=== PATIENT | female | born 1985 | race Caucasian/White ===

== ENCOUNTER 2017-02-27 15:59 | Emergency (ER) | payer OTHER ==
--- NOTE | 2017-02-27 16:57 | ERPHSYRPT ---
- History of Present Illness Time Seen by Provider: 02/27/17 16:45 Source: patient Exam Limitations: clinical condition Patient Subjective Stated Complaint: pt co pain to both legs, and sob since yesterday, pt states she has bilat. dvt's in dec and is afraid someithing is wrong, she states she fell yestereday. Triage Nursing Assessment: pt walked in, resp labored with excertion, skin w/d. pink pt states she has swelling to legs, no swelling noted, pt co being anxious Physician History: PATIENT WITH HISTORY OF BILATERAL DVT STATES SHE FELL ONTO HER BUTTOCK AND SUSTAINED INJURY TO BOTH CALFS AND LEFT KNEE. LANDING ONTO HER BUTTOCK. HAS ONSET OF SHORTNESS OF BREATH AFTER HER FALL, STATES HER ELIQUIS RAN OUT FOR 2-3 DAYS A COUPLE OF DAYS AGO. DENIES ASSOCIATED HEAD NECK OR BACK INJURY. Timing/Duration: today Activities at Onset: none Severity of Dyspnea-Max: mild Severity of Dyspnea-Current: mild Modifying Factors: Improves With: other (WEIGHT BEARING) Allergies/Adverse Reactions: etodolac [From Lodine] Allergy (Verified 02/27/17 16:20) ibuprofen Allergy (Verified 02/27/17 16:20) ketorolac [From Toradol] Allergy (Verified 02/27/17 16:20) meloxicam [From Mobic] Allergy (Verified 02/27/17 16:20) nalbuphine [From Nubain] Allergy (Verified 02/27/17 16:20) naproxen Allergy (Verified 02/27/17 16:20) promethazine [From Phenergan] Allergy (Verified 02/27/17 16:20) tramadol [From Ultram] Allergy (Verified 02/27/17 16:20) Home Medications: Alprazolam 1 mg [Xanax 1 mg] 2 mg BID 02/27/17 [History] Apixaban [Eliquis] 5 mg BID 02/27/17 [History] Diazepam 5 mg [Valium 5 MG] 5 mg DAILY 02/27/17 [History] Fluoxetine HCl [Prozac] 40 mg BID 02/27/17 [History] Hydralazine HCl 75 mg BID 02/27/17 [History] Quetiapine Fumarate [Seroquel] 300 mg DAILY 02/27/17 [History] Ranitidine HCl [Zantac] 300 mg DAILY 02/27/17 [History] Sumatriptan Succinate [Imitrex 50 mg] 100 mg PRN 02/27/17 [History] Hx Tetanus, Diphtheria Vaccination/Date Given: Yes Hx Influenza Vaccination/Date Given: No Hx Pneumococcal Vaccination/Date Given: No Immunizations Up to Date: Yes - Review of Systems Constitutional: No Fever, No Chills Eyes: No Symptoms Ears, Nose, & Throat: No Symptoms Respiratory: Dyspnea, No Cough Cardiac: No Chest Pain, No Edema, No Syncope Abdominal/Gastrointestinal: No Abdominal Pain, No Nausea, No Vomiting, No Diarrhea Genitourinary Symptoms: No Dysuria Musculoskeletal: Injury, Other (CALF PAIN, KNEE PAIN), No Back Pain, No Neck Pain Skin: No Rash Neurological: No Dizziness, No Focal Weakness, No Sensory Changes Psychological: No Symptoms Endocrine: No Symptoms All Other Systems: Reviewed and Negative - Past Medical History Pertinent Past Medical History: Yes Neurological History: Migraines Psycho-Social History: Anxiety, Bipolar, Depression Other Medical History: kidney stones - Past Surgical History Past Surgical History: Yes Female Surgical History: Section, Tubal Ligation Other Surgical History: lithotripsy - Social History Smoking Status: Current some day smoker Exposure to second hand smoke: Yes Drug Use: none Patient Lives Alone: No - Female History Hx Last Menstrual Period: february - Nursing Vital Signs Nursing Vital Signs: Initial Vital Signs Temperature 97.7 F Temperature Source Oral Pulse Rate 82 Respiratory Rate 16 Blood Pressure [] 100/49 Pain Intensity 5 - Physical Exam General Appearance: no apparent distress, alert, other (IN NO DISTRESS, TALKING ON CELL PHONE UPON ENTERING ROOM) Eye Exam: PERRL/EOMI Ears, Nose, Throat Exam: hearing grossly normal Neck Exam: normal inspection, supple Respiratory Exam: normal breath sounds, lungs clear Cardiovascular/Chest Exam: normal heart sounds, regular rate/rhythm Abdominal/Gastrointestinal Exam: soft, normal bowel sounds, No tenderness, No distention, No mass Extremity Exam: normal range of motion, normal inspection, no pedal edema, calf tenderness (BILATERAL CALF TENDERNESS, NO ECCHYMOSIS, NO SMITH TENDERNESS OR DEFORMITY OR ECCHYMOSIS, BILAT PEDIS PULSES 2+), joint swelling (LEFT KNEE TENDERNESS, NO JOINT LAXITY UPON VARUS/VALGUS STRESS, NEGATIVE ANTERIOR DRAW SIGN) Peripheral Pulses Exam: carotid (R): 2+, carotid (L): 2+, femoral (R): 2+, femoral (L): 2+, dorsalis-pedis (R): 2+, dorsalis-pedis (L): 2+ Neurologic Exam: alert, oriented x 3, cooperative, epic cadence specialists II-XII nml as tested, sensation nml, No motor deficits Skin Exam: normal color, warm, No dry SpO2 Interpretation: normal SpO2: 99 Oxygen Delivery: Room Air - Radiology Exams Left Lower Leg X-ray Interpretation: Interpreted by me, Negative, No Fracture Right Lower Leg X-ray Interpretation: Interpreted by me, Negative, No Fracture Left Knee X-ray Interpretation: Interpreted by me, Negative, No Fracture (NO DISLOCATION) - CT Exams Chest CT Interpretation: Tele-radiologist Report, Other (NO LARGE CENTRAL EMBOLISM, NO PNEUMOTHORAX,) Ordered Tests: Active Orders 24 hr Category Date Time Status Crutches STAT Care 02/27/17 20:17 Ordered CHEST WITH CONTRAST [CT] Stat Exams 02/27/17 16:54 Taken KNEE (3 VIEWS) Stat Exams 02/27/17 16:52 Taken LOWER LEG Stat Exams 02/27/17 16:51 Taken LOWER LEG Stat Exams 02/27/17 16:53 Taken BMP Stat Lab 02/27/17 17:00 Completed CBC W DIFF Stat Lab 02/27/17 17:00 Completed Medication Summary Generic Name Dose Route Start Last Admin Trade Name Freq PRN Reason Stop Dose Admin Sodium Chloride 1,000 mls @ 100 mls/hr 02/27/17 17:00 02/27/17 17:09 Sodium Chloride 0.9% 1000 Ml IV 03/29/17 16:59 100 mls/hr .Q10H JAYDE Administration Discontinued Medications Generic Name Dose Route Start Last Admin Trade Name Freq PRN Reason Stop Dose Admin Acetaminophen/Hydrocodone Bitart 1 tab 02/27/17 17:12 02/27/17 17:33 [place] 5/325 Mg PO 02/27/17 17:13 1 tab STAT ONE Administration Acetaminophen/Hydrocodone Bitart Confirm 02/27/17 17:14 [place] 5/325 Mg Administered 02/27/17 17:15 Dose 1 tab .ROUTE .STK-MED ONE Ondansetron HCl 4 mg 02/27/17 17:12 02/27/17 17:14 Zofran 4 Mg/2 Ml Vial IV 02/27/17 17:13 4 mg STAT ONE Administration Ondansetron HCl Confirm 02/27/17 17:13 Zofran 4 Mg/2 Ml Vial Administered 02/27/17 17:14 Dose 4 mg .ROUTE .STK-MED ONE Lab/Rad Data: Laboratory Result Diagrams 02/27/17 17:00 02/27/17 17:00 Laboratory Results 02/27/17 02/27/17 Range/Units 17:00 17:00 WBC 6.9 (4.0-10.5) K/mm3 RBC 4.52 (4.1-5.4) M/mm3 Hgb 13.7 (12.0-16.0) gm/dl Hct 41.2 (35-47) % MCV 91.2 (78-100) fl MCH 30.3 (26-32) pg MCHC 33.3 (32-36) g/dl RDW 13.7 (11.5-14.0) % Plt Count 196 (150-450) K/mm3 MPV 10.7 H (6-9.5) fl Gran % 46.5 (36.0-66.0) % Lymphocytes % 41.4 (24.0-44.0) % Monocytes % 8.7 (0.0-12.0) % Eosinophils % 2.5 (0.00-5.0) % Basophils % 0.9 (0.0-0.4) % Basophils # 0.06 (0-0.4) Sodium 141 (136-145) mEq/L Potassium 3.6 (3.5-5.1) mEq/L Chloride 106 (98-107) mEq/L Carbon Dioxide 27.8 (21-32) mEq/L Anion Gap 10.8 (5-15) MEQ/L BUN 10 (9-20) mg/dL Creatinine 1.03 (0.55-1.30) mg/dl Estimated GFR > 60 ML/MIN Glucose 101 (70-110) MG/DL Calcium 8.9 (8.5-10.1) mg/dL - Progress Progress: improved Progress Note: 02/27/17 20:15 PATIENT GIVEN NORCO Counseled pt/family regarding: lab results, diagnosis, need for follow-up, rad results - Departure Time of Disposition: 20:24 Departure Disposition: Home Clinical Impression: LEFT KNEE CONTUSION/STRAIN, BILATERAL CALF CONTUSION, MEDICATION NONCOMPLIANCE Condition: Stable Critical Care Time: No Referrals: DOCTOR,NO FAMILY [Primary Care Provider] - Additional Instructions: AMBULATE USING CRUTCHES, NONWEIGHT BEARING LEFT FOOT FOR 5-7 DAYS. APPLY ICE OVER LEFT KNEE AND CALF SWELLING EVERY 4 HOURS, 30 MINUTES FOR 48 HOURS. NORCO 5 /325 EVERY 4 HOURS FOR PAIN NEEDED. CONSULT YOUR FAMILY PHYSICIAN FOR FOLLOWUP IN 1 WEEK. ZOFRAN 4MG EVERY 6 HOURS NEEDED FOR NAUSEA. Prescriptions: Hydrocodone/Acetaminophen [[place] 5-325 Tablet] 1 each PO Q4H PRN PRN #8 tablet PRN Reason: Pain Ondansetron [Zofran Odt] 4 mg PO Q6H PRN PRN #5 tab.rapdis PRN Reason: Nausea
[2017-02-27] MEDS ORDERED: Sodium Chloride 0.9% 1000 ML 1,000 ML IV SCH (17:00)
[2017-02-27] MEDS ORDERED: Sodium Chloride 0.9% 1000 ML 1,000 ML ONE (17:05)
[2017-02-27] MEDS ORDERED: NORCO 5/325 MG PO ONE (17:12)
[2017-02-27] MEDS ORDERED: Zofran 4 MG/2 ML VIAL IV ONE (17:12)
[2017-02-27] MEDS ORDERED: Zofran 4 MG/2 ML VIAL ONE (17:13)
[2017-02-27] MEDS ORDERED: NORCO 5/325 MG ONE (17:14)
[2017-02-27 17:22] LABS: BASOPHIL % 0.9 % (0.0-0.4); Eosinophil % 2.5 % (0.00-5.0); Granulocytes % 46.5 % (36.0-66.0); Lymphocytes % 41.4 % (24.0-44.0); Mean Cell Volume 91.2 fl (78-100); Mean Corpuscular Hemoglobin 30.3 pg (26-32); Mean Platelet Volume 10.7 fl (6-9.5); Monocytes % 8.7 % (0.0-12.0); Platelet Count 196 K/mm3 (150-450); Red Blood Count 4.52 M/mm3 (4.1-5.4); Red Cell Distribution Width 13.7 % (11.5-14.0); White Blood Count 6.9 K/mm3 (4.0-10.5)
[2017-02-27 17:44] LABS: ANION GAP 10.8 MEQ/L (5-15); BLOOD UREA NITROGEN 10 mg/dL (9-20); CHLORIDE 106 mEq/L (98-107); Carbon Dioxide 27.8 mEq/L (21-32); Glucose 101 MG/DL (70-110); Potassium 3.6 mEq/L (3.5-5.1); SODIUM 141 mEq/L (136-145)
[2017-02-27 20:33] VITALS: BP 112/57; PULSE 75; O2SAT 98
--- NOTE | 2017-02-28 08:49 | XRAY ---
Indication: Pain following fall. Comparison: None 2 views of the right lower leg demonstrates tiny inferior patellar spurring. No other bony, articular, or soft tissue abnormalities.
--- NOTE | 2017-02-28 08:51 | XRAY ---
Indication: Pain following fall. Comparison: None 3 views of the left knee demonstrates tiny inferior patellar spurring. No other bony, articular, or soft tissue abnormalities.
--- NOTE | 2017-02-28 08:52 | XRAY ---
Indication: Pain following fall. Comparison: None 2 views of the left lower leg demonstrates tiny inferior patellar spurring and mild distal lower leg soft tissue swelling/edema. No other bony, articular, or soft tissue abnormalities.
--- NOTE | 2017-02-28 08:55 | XRAY ---
Indication: Pulmonary embolus. History of DVT. Status post fall. Multiple contiguous axial images obtained through the chest using 80 cc Isovue 370 contrast and PE protocol. Comparison: None. There is suboptimal opacification of the pulmonary arteries for unknown reason limiting evaluation of the more distal lobar and segmental branches. No filling defect or pulmonary embolus in the central pulmonary arteries. Heart is not enlarged. Aorta is normal in course and caliber. No pathologic mediastinal/hilar lymphadenopathy. Small hiatal hernia. Examination of the lung parenchyma demonstrates minimal bilateral dependent atelectasis. No suspicious pulmonary mass, infiltrate, consolidation, or effusion. Bony thorax intact. Limited upper abdomen unremarkable. Impression: 1. Suboptimal pulmonary artery opacification. No large central pulmonary embolus. 2. No acute cardiopulmonary abnormalities. 3. Incidental small hiatal hernia. Comment: Preliminary interpretation was made by [facility]. No discrepancy. CT DI 23.69
== END 2017-02-27 20:33 | disposition home or self-care (01) ==
LOC: ED 15:59
DX: S80.02XA Contusion of left knee, initial encounter (principal); S83.92XA Sprain of unspecified site of left knee, initial encounter; S80.12XA Contusion of left lower leg, initial encounter; S80.11XA Contusion of right lower leg, initial encounter; Z91.14 Patient's other noncompliance with medication regimen; W19.XXXA Unspecified fall, initial encounter
CPT/HCPCS: 36415; 71260; 73562; 73590; 80048; 85025; 96360; 96361; 96374; 99284; J2405; A9270-GY

== ENCOUNTER 2018-02-12 14:48 | Emergency (ER) | payer OTHER ==
[2018-02-12 15:40] LABS: BASOPHIL % 0.3 % (0.0-0.4); Basophil (Absolute #) 0.02 (0-0.4); Eosinophil % 2.8 % (0.00-5.0); Eosinophil (Absolute #) 0.18 (0-0.5); Granulocyte Absolute (ANC) 3.79 (1.4-6.9); Granulocytes % 58.5 % (36.0-66.0); Hematocrit 41.1 % (35-47); Hemoglobin 13.3 gm/dl (12.0-16.0); Lymphocyte (Absolute #) 1.94 (1.0-4.6); Lymphocytes % 29.9 % (24.0-44.0); Mean Cell Volume 89.7 fl (78-100); Mean Corpuscular Hgb Concent. 32.4 g/dl (32-36); Mean Platelet Volume 11.1 fl (6-9.5); Monocyte (Absolute #) 0.55 (0.0-1.3); Monocytes % 8.5 % (0.0-12.0); Platelet Count 201 K/mm3 (150-450); Red Blood Count 4.58 M/mm3 (4.1-5.4); Red Cell Distribution Width 15.1 % (11.5-14.0); White Blood Count 6.5 K/mm3 (4.0-10.5)
[2018-02-12] MEDS ORDERED: Hydromorphone 1 mg/ml Ampule IV ONE ×2 (15:53→18:56)
[2018-02-12 16:03] LABS: ALBUMIN 3.8 g/dL (3.5-5.0); ALKALINE PHOSPHATASE 82 U/L (38-126); ANION GAP 13.2 MEQ/L (5-15); BLOOD UREA NITROGEN 9 mg/dL (7-17); CHLORIDE 104 mmol/L (98-107); Calcium 9.2 mg/dL (8.4-10.2); Carbon Dioxide 26 mmol/L (22-30); Creatinine 1 0.79 mg/dL (0.52-1.04); Glucose 112 mg/dL (74-106); LIPASE 52 U/L (23-300); Potassium 3.7 mmol/L (3.5-5.1); SGOT/AST 24 U/L (14-36); SGPT/ALT 26 U/L (0-35); SODIUM 140 mmol/L (137-145); Total Protein 7.2 g/dL (6.3-8.2)
[2018-02-12 17:17] LABS: Appearance CLEAR (CLEAR); Bilirubin SMALL (NEGATIVE); Blood NEGATIVE Ery/ul (0-5); Glucose NEGATIVE (NEGATIVE); Ketones NEGATIVE (NEGATIVE); Leukocyte Esterase TRACE (NEGATIVE); Nitrite NEGATIVE (NEGATIVE); Protein,Urine Dip TRACE (Negative); Urobilinogen 4 mg/dL (0-1)
[2018-02-12] MEDS ORDERED: DILAUDID 2 MG INJECTION ONE ×2 (17:20→18:58)
[2018-02-12 17:23] LABS: Bacteria FEW /HPF (NEGATIVE); Epithelial Cells FEW /HPF (FEW); Mucus MODERATE /HPF (NEGATIVE)
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
[2018-02-12 19:38] VITALS: BP 115/78; PULSE 79; O2SAT 99
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
== END 2018-02-12 19:41 | disposition home or self-care (01) ==
LOC: ED 14:48
DX: R10.12 Left upper quadrant pain (principal); R11.10 Vomiting, unspecified; Z79.899 Other long term (current) drug therapy
CPT/HCPCS: 36000; 36415; 74177; 80053; 81000; 83690; 84703; 85025; 87086; 96374; 96376; 99282; 99284; J1170

== ENCOUNTER 2018-03-07 18:36 | Emergency (ER) | payer OTHER ==
[2018-03-07 18:55] VITALS: O2SAT 99
[2018-03-07] MEDS ORDERED: Zofran 4 MG/2 ML VIAL ONE (19:33)
[2018-03-07] MEDS ORDERED: Sodium Chloride 0.9% 1000 ML 1,000 ML ONE (20:10)
[2018-03-07] MEDS ORDERED: MAALOX ES 30 ML UNIT DOSE ONE (20:10)
[2018-03-07] MEDS ORDERED: XYLOCAINE HCl Viscous ONE (20:10)
[2018-03-07] MEDS ORDERED: PROTONIX 40 MG IV IV ONE (20:10)
[2018-03-07] MEDS: Zofran 4 MG/2 ML VIAL IV ONE (20:15)
[2018-03-07] MEDS: PROTONIX 40 MG IV IV ONE (20:16)
[2018-03-07] MEDS: Sodium Chloride 0.9% 1000 ML 1,000 ML IV STA (20:17)
[2018-03-07] MEDS: GI COCKTAIL 45 ML (Maalox/Lidocaine) PO ONE (20:17)
[2018-03-07 20:33] LABS: BASOPHIL % 0.4 % (0.0-0.4); Basophil (Absolute #) 0.04 (0-0.4); Eosinophil % 1.9 % (0.00-5.0); Granulocytes % 59.1 % (36.0-66.0); Hematocrit 39.3 % (35-47); Hemoglobin 12.6 gm/dl (12.0-16.0); Lymphocyte (Absolute #) 3.29 (1.0-4.6); Lymphocytes % 31.3 % (24.0-44.0); Mean Cell Volume 90.1 fl (78-100); Mean Corpuscular Hemoglobin 28.9 pg (26-32); Mean Corpuscular Hgb Concent. 32.1 g/dl (32-36); Mean Platelet Volume 11.5 fl (6-9.5); Monocyte (Absolute #) 0.77 (0.0-1.3); Monocytes % 7.3 % (0.0-12.0); Platelet Count 213 K/mm3 (150-450); Red Blood Count 4.36 M/mm3 (4.1-5.4); Red Cell Distribution Width 15.8 % (11.5-14.0); White Blood Count 10.5 K/mm3 (4.0-10.5)
--- NOTE | 2018-03-07 20:34 | ERPHSYRPT ---
- History of Present Illness Time Seen by Provider: 03/07/18 19:08 Historian: patient Exam Limitations: clinical condition Patient Subjective Stated Complaint: Abdominal Pain after falling 2 weeks ago. Intermittent Pain. Triage Nursing Assessment: Pt presents to the ED with complaints of abdominal pain after falling on a railroad tie approximately 2 weeks ago. PT states she was seen her previously for same complaint. Pt states pain has been intermittent since onset, states worse with movement or palpation. No distress noted, skin PWD. Pt denies new injury. Physician History: PATIENT FELL ONTO RAILROAD TIE 3 WEEKS AGO EVALUATED WITH A NORMAL ABDOMINAL PELVIC CT SCAN WITH INTRAVENOUS CONTRAST ON 02/12/2018 EXCEPT FOR A SMALL HIATAL HERNIA. PATIENT COMPLAINS OF PERSISTENT EPIGASTRIC PAINS ASSOCIATED WITH EMESIS . PATIENT STATES HER PERCOCET PRESCRIPTION RAN OUT 2 WEEKS AGO. Timing/Duration: week(s) Activities at Onset: none Quality: cramping, sharpness Abdominal Pain Onset Location: epigastric Pain Radiation: no radiation Severity of Pain-Max: moderate Severity of Pain-Current: moderate Associated Symptoms: nausea, vomiting Previous symptoms: same symptoms as today Allergies/Adverse Reactions: etodolac [From Lodine] Allergy (Verified 02/12/18 15:04) ibuprofen Allergy (Verified 02/12/18 15:04) ketorolac [From Toradol] Allergy (Verified 02/12/18 15:04) meloxicam [From Mobic] Allergy (Verified 02/12/18 15:04) nalbuphine [From Nubain] Allergy (Verified 02/12/18 15:04) naproxen Allergy (Verified 02/12/18 15:04) promethazine [From Phenergan] Allergy (Verified 02/12/18 15:04) tramadol [From Ultram] Allergy (Verified 02/12/18 15:04) Home Medications: Apixaban [Eliquis] 5 mg BID 02/27/17 [History] Ranitidine HCl [Zantac] 300 mg DAILY 02/27/17 [History] Clonazepam [Clonazepam] 1 mg PO BIDPRN PRN 03/07/18 [History] Gabapentin Enacarbil [Horizant] 600 mg PO DAILY 03/07/18 [History] Hx Tetanus, Diphtheria Vaccination/Date Given: Yes Hx Influenza Vaccination/Date Given: No Hx Pneumococcal Vaccination/Date Given: No Immunizations Up to Date: No - Review of Systems Constitutional: No Fever, No Chills Eyes: No Symptoms Ears, Nose, & Throat: No Symptoms Respiratory: No Cough, No Dyspnea Cardiac: No Chest Pain, No Edema, No Syncope Abdominal/Gastrointestinal: Abdominal Pain, Nausea, Vomiting, No Diarrhea Genitourinary Symptoms: No Symptoms, No Dysuria Musculoskeletal: No Symptoms, No Back Pain, No Neck Pain Skin: No Rash Neurological: No Dizziness, No Focal Weakness, No Sensory Changes Psychological: No Symptoms Endocrine: No Symptoms All Other Systems: Reviewed and Negative - Past Medical History Pertinent Past Medical History: No Neurological History: No Pertinent History ENT History: No Pertinent History Cardiac History: No Pertinent History Respiratory History: No Pertinent History Endocrine Medical History: No Pertinent History Musculoskeletal History: No Pertinent History GI Medical History: GERD History: No Pertinent History Psycho-Social History: Anxiety, Bipolar, Depression Female Reproductive Disorders: No Pertinent History Other Medical History: DVT Left leg - Past Surgical History Past Surgical History: Yes Neuro Surgical History: No Pertinent History Cardiac: No Pertinent History Respiratory: No Pertinent History Gastrointestinal: No Pertinent History Genitourinary: Other Musculoskeletal: No Pertinent History Female Surgical History: Section Other Surgical History: lithotripsy for kidney stones, pt states todays pain is different - Social History Smoking Status: Current every day smoker How long have you smoked: 21 years Exposure to second hand smoke: Yes Drug Use: none Patient Lives Alone: No - Female History Hx Last Menstrual Period: 02/18/2018 Hx Now: No - Nursing Vital Signs Nursing Vital Signs: Initial Vital Signs Temperature 97.8 F 03/07/18 18:51 Pulse Rate 76 03/07/18 18:51 Respiratory Rate 16 03/07/18 18:51 Blood Pressure 121/71 03/07/18 18:51 O2 Sat by Pulse Oximetry 99 03/07/18 18:51 Pain Scale Pain Intensity 9 - Physical Exam General Appearance: no apparent distress, alert Eye Exam: PERRL/EOMI, eyes nml inspection Ears, Nose, Throat Exam: normal ENT inspection, pharynx normal, moist mucous membranes Neck Exam: normal inspection, non-tender, supple, full range of motion Respiratory Exam: normal breath sounds, lungs clear, No respiratory distress Cardiovascular Exam: regular rate/rhythm, normal heart sounds Gastrointestinal/Abdomen Exam: soft, normal bowel sounds, tenderness (SUPERIOR EPIGASTRIC TENDERNESS), No mass Back Exam: normal inspection, normal range of motion, No CVA tenderness, No vertebral tenderness Extremity Exam: normal inspection, normal range of motion, pelvis stable Neurologic Exam: alert, oriented x 3, cooperative, normal mood/affect, nml cerebellar function, sensation nml, No motor deficits Skin Exam: normal color, warm, dry SpO2 Interpretation: normal SpO2: 99 Oxygen Delivery: Room Air - Radiology Exams Abdomen X-ray Interpretation: Interpreted by me (NO EVIDENCE OF BOWEL OBSTRUCTION OR FREE AIR) Ordered Tests: Active Orders 24 hr Category Date Time Status OBSTR/ACUTE ABDOMEN SERIES Stat Exams 03/07/18 19:40 Taken AMYLASE Stat Lab 03/07/18 20:20 Completed BMP Stat Lab 03/07/18 20:20 Completed CBC W DIFF Stat Lab 03/07/18 20:20 Completed LIPASE Stat Lab 03/07/18 20:20 Completed Medication Summary Discontinued Medications Generic Name Dose Route Start Last Admin Trade Name Freq PRN Reason Stop Dose Admin Al Hydrox/Mg Hydrox/Simethicone Confirm 03/07/18 20:10 Maalox Es 30 Ml Unit Dose Administered 03/07/18 20:11 Dose 30 ml .ROUTE .STK-MED ONE Sodium Chloride 1,000 mls @ 500 mls/hr 03/07/18 19:38 03/07/18 20:17 Sodium Chloride 0.9% 1000 Ml IV 03/07/18 21:37 500 mls/hr .Q2H STA Administration Sodium Chloride Confirm 03/07/18 20:10 Sodium Chloride 0.9% 1000 Ml Administered 03/07/18 20:11 Dose 1,000 mls @ ud .ROUTE .STK-MED ONE Lidocaine HCl Confirm 03/07/18 20:10 Xylocaine Hcl Viscous * Administered 03/07/18 20:11 Dose 15 ml .ROUTE .STK-MED ONE Magnesium Hydroxide 45 ml 03/07/18 19:38 03/07/18 20:17 Gi Cocktail 45 Ml (Maalox/Lidocaine) PO 03/07/18 19:39 45 ml STAT ONE Administration Morphine Sulfate 6 mg 03/07/18 21:48 Morphine Sulfate 10 Mg/Ml IV 03/07/18 21:49 STAT ONE Ondansetron HCl Confirm 03/07/18 19:33 Zofran 4 Mg/2 Ml Vial Administered 03/07/18 19:34 Dose 4 mg .ROUTE .STK-MED ONE Ondansetron HCl 4 mg 03/07/18 20:03 03/07/18 20:15 Zofran 4 Mg/2 Ml Vial IV 03/07/18 20:04 4 mg STAT ONE Administration Pantoprazole Sodium 40 mg 03/07/18 19:38 03/07/18 20:16 Protonix 40 Mg Iv IV 03/07/18 19:39 40 mg STAT ONE Administration Pantoprazole Sodium Confirm 03/07/18 20:10 Protonix 40 Mg Iv Administered 03/07/18 20:11 Dose 40 mg IV .STK-MED ONE Lab/Rad Data: Laboratory Result Diagrams 03/07/18 20:20 03/07/18 20:20 Laboratory Results 03/07/18 03/07/18 Range/Units 20:20 20:20 WBC 10.5 (4.0-10.5) K/mm3 RBC 4.36 (4.1-5.4) M/mm3 Hgb 12.6 (12.0-16.0) gm/dl Hct 39.3 (35-47) % MCV 90.1 (78-100) fl MCH 28.9 (26-32) pg MCHC 32.1 (32-36) g/dl RDW 15.8 H (11.5-14.0) % Plt Count 213 (150-450) K/mm3 MPV 11.5 H (6-9.5) fl Gran % 59.1 (36.0-66.0) % Eos # (Auto) 0.20 (0-0.5) Absolute Lymphs (auto) 3.29 (1.0-4.6) Absolute Monos (auto) 0.77 (0.0-1.3) Lymphocytes % 31.3 (24.0-44.0) % Monocytes % 7.3 (0.0-12.0) % Eosinophils % 1.9 (0.00-5.0) % Basophils % 0.4 (0.0-0.4) % Absolute Granulocytes 6.20 (1.4-6.9) Basophils # 0.04 (0-0.4) Sodium 140 (137-145) mmol/L Potassium 3.8 (3.5-5.1) mmol/L Chloride 106 (98-107) mmol/L Carbon Dioxide 26 (22-30) mmol/L Anion Gap 12.7 (5-15) MEQ/L BUN 12 (7-17) mg/dL Creatinine 0.80 (0.52-1.04) mg/dL Estimated GFR > 60.0 ML/MIN Glucose 88 (74-106) mg/dL Calcium 8.9 (8.4-10.2) mg/dL Amylase 53 (30-110) U/L Lipase 89 (23-300) U/L - Progress Progress: improved, pain not gone completely Progress Note: 03/07/18 21:51 ADVISED PATIENT HER INJURY OCCURRED 3 1/2 WEEKS AGO, CT ABDOMINAL PELVIS WERE NEGATIVE, PATIENT HAS MULTIPLE ALLERGIES. ADMINISTERED NORMAL SALINE 500ML/HR , ZOFRA 4MG, PROTONIX 40MG IV, MORPHINE 6MG IV Counseled pt/family regarding: lab results, diagnosis, need for follow-up - Departure Time of Disposition: 22:00 Departure Disposition: Home Clinical Impression: ABDOMINAL PAIN Condition: Stable Critical Care Time: No Referrals: DOCTOR,NO FAMILY [Primary Care Provider] - Additional Instructions: INCREASE YOUR DOSE OF ZANTAC 150MG TWICE DAILY FOR 3 WEEKS. PERCOGESIC 1 TABLET EVERY 4 HOURS FOR PAIN. ZOFRAN 4MG EVERY 4 HOURS FOR NAUSEA NEEDED. CALL YOUR PRIMARY CARE PROVIDER OFFICE FOR AN EARLIER APPOINTMENT Prescriptions: Acetaminophen/Diphenhydramine [Percogesic Extra Str Caplet] 1 each PO Q4H PRN PRN #15 tablet PRN Reason: Pain Ondansetron ODT 4 MG [Zofran Odt 4 mg] 4 mg PO Q6H PRN PRN #8 tab.rapdis PRN Reason: Nausea
[2018-03-07 20:49] LABS: AMYLASE 53 U/L (30-110); ANION GAP 12.7 MEQ/L (5-15); BLOOD UREA NITROGEN 12 mg/dL (7-17); CHLORIDE 106 mmol/L (98-107); Calcium 8.9 mg/dL (8.4-10.2); Carbon Dioxide 26 mmol/L (22-30); Glucose 88 mg/dL (74-106); LIPASE 89 U/L (23-300); Potassium 3.8 mmol/L (3.5-5.1); SODIUM 140 mmol/L (137-145)
[2018-03-07] MEDS ORDERED: MORPHINE SULFATE 10 MG/ML ONE (21:52)
[2018-03-07] MEDS: MORPHINE SULFATE 10 MG/ML IV ONE (21:55)
[2018-03-07 22:01] VITALS: BP 115/70; PULSE 75
--- NOTE | 2018-03-08 08:55 | XRAY ---
Indication: Left flank/epigastric pain. Comparison: None 2 views of the abdomen nonacute and nonobstructed. Solid organs and osseous structures unremarkable. Single PA chest demonstrates normal heart, lungs, and bony thorax. Impression: Negative abdomen. Normal 1 view chest.
== END 2018-03-07 22:26 | disposition home or self-care (01) ==
LOC: ED 18:36
DX: R10.9 Unspecified abdominal pain (principal); R10.13 Epigastric pain; R11.2 Nausea with vomiting, unspecified; Z79.899 Other long term (current) drug therapy
CPT/HCPCS: 36415; 74022; 80048; 82150; 83690; 85025; 96360; 96361; 96374; 96375; 99284; J2270; J2405; A9270-GY

== ENCOUNTER 2018-04-11 14:34 | Emergency (ER) | payer OTHER ==
[2018-04-11 14:47] VITALS: O2SAT 98
--- NOTE | 2018-04-11 15:28 | ERPHSYRPT ---
- History of Present Illness Time Seen by Provider: 04/11/18 15:23 Source: patient Exam Limitations: no limitations Patient Subjective Stated Complaint: Left Lower Quadrant Abdominal Pain x5 days Triage Nursing Assessment: Pt presents to the ED with complaints of left lower quadrant abdominal pain with radiation into left flank. Pt states "I think I have a kidney stone." Pt states pain x 5 days. Appointment with PCP scheduled for Monday with Dr. Ayala in [place]. Physician History: This is a 32-year-old white female who I have previously seen at another facility on several occasions who has a history of chronic back pain and is on chronic narcotic analgesia. She arrives with complaint of pain in her left the flank radiating to her left lower quadrant symptoms for 5 days no vomiting positive dysuria. Patient has not had a fever. 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 Further recent view of the patient's inspect report shows that she has been on narcotic analgesia from multiple prescribers at several facilities over the past year. Past medical history includes GERD, anxiety bipolar disorder, DVT left leg, chronic back pain she him him with him is alert Past surgical history includes , lithotripsy social history positive tobacco use. Timing/Duration: day(s) (5 days) Severity: moderate Associated Symptoms: abdominal pain (lleft lower quadrant abdominal pain), No nausea, No vomiting, No heartburn, No diaphoresis, No cough, No chills, No chest pain, No fever, No headaches, No loss of appetite, No malaise, No rash, No syncope, No seizure, No weakness Allergies/Adverse Reactions: etodolac [From Lodine] Allergy (Verified 02/12/18 15:04) ibuprofen Allergy (Verified 02/12/18 15:04) ketorolac [From Toradol] Allergy (Verified 02/12/18 15:04) meloxicam [From Mobic] Allergy (Verified 02/12/18 15:04) naproxen Allergy (Verified 02/12/18 15:04) tramadol [From Ultram] Allergy (Verified 02/12/18 15:04) Home Medications: Apixaban [Eliquis] 5 mg BID 02/27/17 [History] Ranitidine HCl [Zantac] 300 mg DAILY 02/27/17 [History] Clonazepam [Clonazepam] 1 mg PO BIDPRN PRN 03/07/18 [History] Gabapentin Enacarbil [Horizant] 600 mg PO DAILY 03/07/18 [History] Cyclobenzaprine HCl 10 mg [Cyclobenzaprine 10 MG] 10 mg PO TID PRN [History] Desvenlafaxine [Khedezla] 50 mg PO DAILY 04/11/18 [History] Olanzapine Odt 5 mg [Zyprexa Zydis 5 MG] 5 mg PO DAILY 04/11/18 [History] Oxycodone HCl/Acetaminophen [Oxycodon-Acetaminophen 7.5-325] 1 tab PO TIDPRN PRN 04/11/18 [History] Prazosin HCl [Minipress] 3 mg PO QHS 04/11/18 [History] Hx Tetanus, Diphtheria Vaccination/Date Given: Yes Hx Influenza Vaccination/Date Given: No Hx Pneumococcal Vaccination/Date Given: No Immunizations Up to Date: No - Review of Systems Constitutional: No Fever, No Chills Eyes: No Symptoms Ears, Nose, & Throat: No Symptoms Respiratory: No Cough, No Dyspnea Cardiac: No Chest Pain, No Edema, No Syncope Abdominal/Gastrointestinal: Abdominal Pain (left lower quadrant abdominal pain) , No Nausea, No Vomiting, No Diarrhea, No Constipation, No Hematemesis, No Hematochezia, No Melena, No Dysphagia, No Appetite Changes Genitourinary Symptoms: Flank Pain (left flank pain), No Dysuria, No Frequency, No Hematuria, No Incontinence, No Urgency, No Urinary Retention, No Musculoskeletal: Back Pain (left flank pain), No Arthralgias, No Neck Pain, No Deformity, No Fall, No Injury, No Joint Redness, No Joint Pain, No Joint Swelling, No Myalgias Skin: No Rash Neurological: No Dizziness, No Focal Weakness, No Sensory Changes Psychological: No Symptoms Endocrine: No Symptoms All Other Systems: Reviewed and Negative - Past Medical History Pertinent Past Medical History: No Neurological History: No Pertinent History ENT History: No Pertinent History Cardiac History: No Pertinent History Respiratory History: No Pertinent History Endocrine Medical History: No Pertinent History Musculoskeletal History: No Pertinent History, Other (chronic back pain) GI Medical History: GERD History: No Pertinent History Psycho-Social History: Anxiety, Bipolar, Depression Female Reproductive Disorders: No Pertinent History Other Medical History: DVT Left leg - Past Surgical History Past Surgical History: Yes Neuro Surgical History: No Pertinent History Cardiac: No Pertinent History Respiratory: No Pertinent History Gastrointestinal: No Pertinent History Genitourinary: Other Musculoskeletal: No Pertinent History Female Surgical History: Section Other Surgical History: lithotripsy for kidney stones, pt states todays pain is different - Social History Smoking Status: Current every day smoker How long have you smoked: 22 years Exposure to second hand smoke: Yes Drug Use: none Patient Lives Alone: No - Female History Hx Last Menstrual Period: 04/09/2018 Hx Now: No - Nursing Vital Signs Nursing Vital Signs: Initial Vital Signs Temperature 98.7 F 04/11/18 14:43 Pulse Rate 86 04/11/18 14:43 Respiratory Rate 16 04/11/18 14:43 Blood Pressure 147/94 04/11/18 14:43 O2 Sat by Pulse Oximetry 98 04/11/18 14:43 Pain Scale Pain Intensity 9 - Physical Exam General Appearance: no apparent distress Eye Exam: PERRL/EOMI, eyes nml inspection Ears, Nose, Throat Exam: normal ENT inspection, TMs normal, pharynx normal, moist mucous membranes Neck Exam: normal inspection, non-tender, supple, full range of motion Respiratory Exam: normal breath sounds, lungs clear, No respiratory distress Cardiovascular Exam: regular rate/rhythm, normal heart sounds, normal peripheral pulses Gastrointestinal/Abdomen Exam: soft, normal bowel sounds, tenderness (mild left lower quadrant tenderness), No distention, No mass, No guarding, No ecchymosis, No pulsatile mass, No rebound, No hernia, No hepatomegaly, No organomegaly, No splenomegaly Back Exam: CVA tenderness (left flank tenderness) Extremity Exam: normal inspection, normal range of motion, pelvis stable Neurologic Exam: alert, oriented x 3, cooperative, 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, normal mood/affect, nml cerebellar function, nml station & gait, sensation nml, No motor deficits Skin Exam: normal color, warm, dry, No rash Lymphatic Exam: No adenopathy SpO2 Interpretation: normal (98%) SpO2: 98 Oxygen Delivery: Room Air Ordered Tests: Active Orders 24 hr Category Date Time Status IV Insertion STAT Care 04/11/18 15:31 Active AMYLASE Stat Lab 04/11/18 15:40 Completed CBC W DIFF Stat Lab 04/11/18 15:40 Completed CMP Stat Lab 04/11/18 15:40 Completed HCG QUALITATIVE,SERUM Stat Lab 04/11/18 15:40 Completed LIPASE Stat Lab 04/11/18 15:40 Completed UA W/RFX UR CULTURE Stat Lab 04/11/18 15:55 Completed Medication Summary Discontinued Medications Generic Name Dose Route Start Last Admin Trade Name Chris PRN Reason Stop Dose Admin Sodium Chloride 1,000 mls @ 999 mls/hr 04/11/18 15:31 04/11/18 15:53 Sodium Chloride 0.9% 1000 Ml IV 04/11/18 16:31 999 mls/hr .Q1H1M STA Administration Sodium Chloride Confirm 04/11/18 15:50 Sodium Chloride 0.9% 1000 Ml Administered 04/11/18 15:51 Dose 1,000 mls @ ud .ROUTE .STK-MED ONE Morphine Sulfate 4 mg 04/11/18 17:03 04/11/18 17:06 Morphine Sulfate 4 Mg Inj IV 04/11/18 17:04 4 mg STAT ONE Administration Morphine Sulfate Confirm 04/11/18 17:05 Morphine Sulfate 4 Mg Inj Administered 04/11/18 17:06 Dose 4 mg .ROUTE .STK-MED ONE Ondansetron HCl 4 mg 04/11/18 17:03 04/11/18 17:06 Zofran 4 Mg/2 Ml Vial IV 04/11/18 17:04 4 mg STAT ONE Administration Ondansetron HCl Confirm 04/11/18 17:04 Zofran 4 Mg/2 Ml Vial Administered 04/11/18 17:05 Dose 4 mg .ROUTE .STK-MED ONE Promethazine HCl 12.5 mg 04/11/18 15:31 04/11/18 15:53 Phenergan 25 Mg Inj IV 04/11/18 15:32 12.5 mg STAT ONE Administration Promethazine HCl Confirm 04/11/18 15:50 Phenergan 25 Mg Inj Administered 04/11/18 15:51 Dose 25 mg .ROUTE .STK-MED ONE Lab/Rad Data: Laboratory Result Diagrams 04/11/18 15:40 04/11/18 15:40 Laboratory Results 04/11/18 04/11/18 04/11/18 Range/Units 15:55 15:40 15:40 WBC (4.0-10.5) K/mm3 RBC (4.1-5.4) M/mm3 Hgb (12.0-16.0) gm/dl Hct (35-47) % MCV (78-100) fl MCH (26-32) pg MCHC (32-36) g/dl RDW (11.5-14.0) % Plt Count (150-450) K/mm3 MPV (6-9.5) fl Gran % (36.0-66.0) % Eos # (Auto) (0-0.5) Absolute Lymphs (auto) (1.0-4.6) Absolute Monos (auto) (0.0-1.3) Lymphocytes % (24.0-44.0) % Monocytes % (0.0-12.0) % Eosinophils % (0.00-5.0) % Basophils % (0.0-0.4) % Absolute Granulocytes (1.4-6.9) Basophils # (0-0.4) Sodium 139 (137-145) mmol/L Potassium 4.0 (3.5-5.1) mmol/L Chloride 108 H (98-107) mmol/L Carbon Dioxide 26 (22-30) mmol/L Anion Gap 9.4 (5-15) MEQ/L BUN 10 (7-17) mg/dL Creatinine 0.69 (0.52-1.04) mg/dL Estimated GFR > 60.0 ML/MIN Glucose 101 (74-106) mg/dL Calcium 8.8 (8.4-10.2) mg/dL Total Bilirubin 0.10 L (0.2-1.3) mg/dL AST 21 (14-36) U/L ALT 22 (0-35) U/L Alkaline Phosphatase 78 (38-126) U/L Serum Total Protein 6.6 (6.3-8.2) g/dL Albumin 3.4 L (3.5-5.0) g/dL Amylase 39 (30-110) U/L Lipase 43 (23-300) U/L Serum , Qual NEGATIVE (Negative) Ur Collection Type CLEAN CATCH Urine Color YELLOW (YELLOW) Urine Appearance CLEAR (CLEAR) Urine pH 5.5 (5-6) Ur Specific [place] 1.020 (1.005-1.025) Urine Protein NEGATIVE (Negative) Urine Ketones NEGATIVE (NEGATIVE) Urine Blood NEGATIVE (0-5) Dima/ul Urine Nitrite NEGATIVE (NEGATIVE) Urine Bilirubin NEGATIVE (NEGATIVE) Urine Urobilinogen NORMAL (0-1) mg/dL Ur Leukocyte Esterase NEGATIVE (NEGATIVE) Urine Culture Reflexed NO (NO) Urine Glucose NEGATIVE (NEGATIVE) mg/dL Specimen Received 04/11/18 1604 04/11/18 Range/Units 15:40 WBC 7.0 (4.0-10.5) K/mm3 RBC 4.41 (4.1-5.4) M/mm3 Hgb 12.7 (12.0-16.0) gm/dl Hct 39.4 (35-47) % MCV 89.3 (78-100) fl MCH 28.8 (26-32) pg MCHC 32.2 (32-36) g/dl RDW 15.0 H (11.5-14.0) % Plt Count 201 (150-450) K/mm3 MPV 10.8 H (6-9.5) fl Gran % 51.1 (36.0-66.0) % Eos # (Auto) 0.17 (0-0.5) Absolute Lymphs (auto) 2.65 (1.0-4.6) Absolute Monos (auto) 0.54 (0.0-1.3) Lymphocytes % 38.1 (24.0-44.0) % Monocytes % 7.8 (0.0-12.0) % Eosinophils % 2.4 (0.00-5.0) % Basophils % 0.6 (0.0-0.4) % Absolute Granulocytes 3.55 (1.4-6.9) Basophils # 0.04 (0-0.4) Sodium (137-145) mmol/L Potassium (3.5-5.1) mmol/L Chloride (98-107) mmol/L Carbon Dioxide (22-30) mmol/L Anion Gap (5-15) MEQ/L BUN (7-17) mg/dL Creatinine (0.52-1.04) mg/dL Estimated GFR ML/MIN Glucose (74-106) mg/dL Calcium (8.4-10.2) mg/dL Total Bilirubin (0.2-1.3) mg/dL AST (14-36) U/L ALT (0-35) U/L Alkaline Phosphatase (38-126) U/L Serum Total Protein (6.3-8.2) g/dL Albumin (3.5-5.0) g/dL Amylase (30-110) U/L Lipase (23-300) U/L Serum , Qual (Negative) Ur Collection Type Urine Color (YELLOW) Urine Appearance (CLEAR) Urine pH (5-6) Ur Specific [place] (1.005-1.025) Urine Protein (Negative) Urine Ketones (NEGATIVE) Urine Blood (0-5) Dima/ul Urine Nitrite (NEGATIVE) Urine Bilirubin (NEGATIVE) Urine Urobilinogen (0-1) mg/dL Ur Leukocyte Esterase (NEGATIVE) Urine Culture Reflexed (NO) Urine Glucose (NEGATIVE) mg/dL Specimen Received - Progress Progress: improved Progress Note: 04/11/18 16:49 Patient's labs essentially normal. Patient states she still has some nausea and left flank pain. Will go ahead and give patient one injection of morphine and Zofran. - Departure Time of Disposition: 16:49 Departure Disposition: Home Clinical Impression: Left flank pain, Chronic pain syndrome Condition: Stable Critical Care Time: No Additional Instructions: Return home. Plenty of fluids, clear fluids only 24-48 hours if abdominal or flank pain. Follow-up with your family doctor. Pain medications as prescribed by your family doctor.
[2018-04-11] MEDS ORDERED: Phenergan 25 MG INJ IV ONE (15:31)
[2018-04-11] MEDS ORDERED: Sodium Chloride 0.9% 1000 ML 1,000 ML IV STA (15:31)
[2018-04-11] MEDS ORDERED: Sodium Chloride 0.9% 1000 ML 1,000 ML ONE (15:50)
[2018-04-11] MEDS ORDERED: Phenergan 25 MG INJ ONE (15:50)
[2018-04-11 15:53] LABS: BASOPHIL % 0.6 % (0.0-0.4); Basophil (Absolute #) 0.04 (0-0.4); Eosinophil % 2.4 % (0.00-5.0); Eosinophil (Absolute #) 0.17 (0-0.5); Granulocyte Absolute (ANC) 3.55 (1.4-6.9); Granulocytes % 51.1 % (36.0-66.0); Hematocrit 39.4 % (35-47); Hemoglobin 12.7 gm/dl (12.0-16.0); Lymphocyte (Absolute #) 2.65 (1.0-4.6); Lymphocytes % 38.1 % (24.0-44.0); Mean Cell Volume 89.3 fl (78-100); Mean Corpuscular Hemoglobin 28.8 pg (26-32); Mean Corpuscular Hgb Concent. 32.2 g/dl (32-36); Mean Platelet Volume 10.8 fl (6-9.5); Monocyte (Absolute #) 0.54 (0.0-1.3); Monocytes % 7.8 % (0.0-12.0); Platelet Count 201 K/mm3 (150-450); Red Blood Count 4.41 M/mm3 (4.1-5.4)
[2018-04-11 16:06] LABS: Appearance CLEAR (CLEAR); Bilirubin NEGATIVE (NEGATIVE); Blood NEGATIVE Ery/ul (0-5); Glucose NEGATIVE (NEGATIVE); Ketones NEGATIVE (NEGATIVE); Leukocyte Esterase NEGATIVE (NEGATIVE); Nitrite NEGATIVE (NEGATIVE); Ph 5.5 (5-6); Protein,Urine Dip NEGATIVE (Negative); Urobilinogen NORMAL mg/dL (0-1)
[2018-04-11 16:17] LABS: ALBUMIN 3.4 g/dL (3.5-5.0); ALKALINE PHOSPHATASE 78 U/L (38-126); AMYLASE 39 U/L (30-110); ANION GAP 9.4 MEQ/L (5-15); BLOOD UREA NITROGEN 10 mg/dL (7-17); CHLORIDE 108 mmol/L (98-107); Calcium 8.8 mg/dL (8.4-10.2); Carbon Dioxide 26 mmol/L (22-30); Creatinine 1 0.69 mg/dL (0.52-1.04); Glucose 101 mg/dL (74-106); LIPASE 43 U/L (23-300); SGOT/AST 21 U/L (14-36); SGPT/ALT 22 U/L (0-35); SODIUM 139 mmol/L (137-145); Total Protein 6.6 g/dL (6.3-8.2)
[2018-04-11] MEDS ORDERED: Zofran 4 MG/2 ML VIAL IV ONE (17:03)
[2018-04-11] MEDS ORDERED: MORPHINE SULFATE 4 MG INJ IV ONE (17:03)
[2018-04-11] MEDS ORDERED: Zofran 4 MG/2 ML VIAL ONE (17:04)
[2018-04-11] MEDS ORDERED: MORPHINE SULFATE 4 MG INJ ONE (17:05)
[2018-04-11 17:44] VITALS: BP 121/66; PULSE 88
== END 2018-04-11 17:48 | disposition home or self-care (01) ==
LOC: ED 14:34
DX: R10.32 Left lower quadrant pain (principal); G89.4 Chronic pain syndrome; R11.0 Nausea; Z79.899 Other long term (current) drug therapy
CPT/HCPCS: 36000; 36415; 80053; 81002; 82150; 83690; 84703; 85025; 96360; 96374; 96375; 99284; J2270; J2405; J2550

== ENCOUNTER 2018-09-15 16:31 | Emergency (ER) | payer OTHER ==
--- NOTE | 2018-09-15 17:50 | ERPHSYRPT ---
- History of Present Illness Time Seen by Provider: 09/15/18 17:42 Historian: patient Exam Limitations: no limitations Patient Subjective Stated Complaint: pt here for multi cos, chest pain for left side off and on for 3 weeks, this time started today about 1430. abd to right side 3 days ago pain off and on, nausea . was able to eat today Triage Nursing Assessment: pt alert, walked in, resp easy, skin w/d/p. abd soft Physician History: The patient is a 32-year-old obese female with her boyfriend complaining of right sided abdominal pain that wraps around to her right flank. This abdominal pain has worsened over the last 3 days. She's had 2 C-sections and lithotripsy. She feels pressure when she tries to urinate. She also complains of central chest pain with radiation down her left arm for 3 weeks. The chest pain has been intermittent until yesterday when it became constant. She denies shortness of breath. She denies sweating. She has some nausea. No vomiting. Her past medical history is significant for kidney stones, morbid obesity, psychiatric issues. Timing/Duration: day(s) (3), gradual onset, worse Activities at Onset: none Quality: aching, burning Abdominal Pain Onset Location: RLQ Pain Radiation: flank (right) Severity of Pain-Max: moderate Severity of Pain-Current: moderate Modifying Factors: Improves With: nothing Associated Symptoms: chest pain, nausea, No diaphoresis, No vomiting Previous symptoms: no prior history Allergies/Adverse Reactions: etodolac [From Lodine] Allergy (Verified 02/12/18 15:04) fentanyl Allergy (Verified 09/15/18 16:49) ibuprofen Allergy (Verified 02/12/18 15:04) ketorolac [From Toradol] Allergy (Verified 02/12/18 15:04) meloxicam [From Mobic] Allergy (Verified 02/12/18 15:04) naproxen Allergy (Verified 02/12/18 15:04) orphenadrine [From Norflex] Allergy (Verified 09/15/18 16:49) tramadol [From Ultram] Allergy (Verified 02/12/18 15:04) Home Medications: Apixaban [Eliquis] 5 mg BID 02/27/17 [History] Ranitidine HCl [Zantac] 300 mg DAILY 02/27/17 [History] Clonazepam 1 mg PO BIDPRN PRN 03/07/18 [History] Gabapentin Enacarbil [Horizant] 600 mg PO DAILY 03/07/18 [History] Cyclobenzaprine HCl 10 mg [Cyclobenzaprine 10 MG] 10 mg PO TID PRN [History] Desvenlafaxine [Khedezla] 50 mg PO DAILY 04/11/18 [History] Olanzapine Odt 5 mg [Zyprexa Zydis 5 MG] 5 mg PO DAILY 04/11/18 [History] Oxycodone HCl/Acetaminophen [Oxycodon-Acetaminophen 7.5-325] 1 tab PO TIDPRN PRN 04/11/18 [History] Prazosin HCl [Minipress] 3 mg PO QHS 04/11/18 [History] Hx Tetanus, Diphtheria Vaccination/Date Given: No Hx Influenza Vaccination/Date Given: No Hx Pneumococcal Vaccination/Date Given: No Immunizations Up to Date: Yes - Review of Systems Constitutional: No Fever, No Chills Eyes: No Symptoms Ears, Nose, & Throat: No Symptoms Respiratory: No Cough, No Dyspnea Cardiac: Chest Pain Abdominal/Gastrointestinal: Abdominal Pain, Nausea Genitourinary Symptoms: No Dysuria Musculoskeletal: No Back Pain, No Neck Pain Skin: No Rash Neurological: No Dizziness, No Focal Weakness, No Sensory Changes Psychological: No Symptoms Endocrine: No Symptoms Hematologic/Lymphatic: No Symptoms Immunological/Allergic: No Symptoms All Other Systems: Reviewed and Negative - Past Medical History Pertinent Past Medical History: Yes Neurological History: No Pertinent History ENT History: No Pertinent History Cardiac History: No Pertinent History Respiratory History: No Pertinent History Endocrine Medical History: No Pertinent History Musculoskeletal History: No Pertinent History, Other GI Medical History: GERD History: No Pertinent History Psycho-Social History: Anxiety, Bipolar, Depression, Other Female Reproductive Disorders: No Pertinent History Other Medical History: DVT Left leg,ptsd - Past Surgical History Past Surgical History: Yes Neuro Surgical History: No Pertinent History Cardiac: No Pertinent History Respiratory: No Pertinent History Gastrointestinal: No Pertinent History Genitourinary: Other Musculoskeletal: No Pertinent History Female Surgical History: Section Other Surgical History: lithotripsy for kidney stones, pt states todays pain is different - Social History Smoking Status: Current every day smoker How long have you smoked: 22 years Exposure to second hand smoke: Yes Drug Use: none Patient Lives Alone: No - Female History Hx Last Menstrual Period: aug Hx Now: No - Nursing Vital Signs Nursing Vital Signs: Initial Vital Signs Temperature 97.2 F 09/15/18 16:47 Pulse Rate 96 H 09/15/18 16:47 Respiratory Rate 18 09/15/18 16:47 Blood Pressure 126/78 09/15/18 16:47 O2 Sat by Pulse Oximetry 98 09/15/18 16:47 Pain Scale Pain Intensity 8 - Physical Exam General Appearance: no apparent distress, alert, obese Eye Exam: PERRL/EOMI, eyes nml inspection Ears, Nose, Throat Exam: normal ENT inspection, pharynx normal, moist mucous membranes Neck Exam: normal inspection, non-tender, supple, full range of motion Respiratory Exam: normal breath sounds, lungs clear, No chest tenderness, No respiratory distress Cardiovascular Exam: regular rate/rhythm, normal heart sounds Gastrointestinal/Abdomen Exam: soft, No tenderness, No mass Pelvic Exam: not done Rectal Exam: not done Back Exam: normal inspection, normal range of motion, No CVA tenderness, No vertebral tenderness Extremity Exam: normal inspection, normal range of motion, pelvis stable Neurologic Exam: alert, oriented x 3, cooperative, normal mood/affect, nml cerebellar function, sensation nml, No motor deficits Skin Exam: normal color, warm, dry Lymphatic Exam: No adenopathy SpO2 Interpretation: normal SpO2: 98 Oxygen Delivery: Room Air - Course EKG Interpreted by Me: RATE, Sinus Rhythm, NORMAL AXIS, NORMAL INTERVALS, NORMAL QRS, NORMAL ST-T - Radiology Exams Chest X-ray Interpretation: Interpreted by me, Negative - CT Exams Abdomen/Pelvis CT Interpretation: Tele-radiologist Report (per Dr Betancourt), No appendicitis, Other (contrast in appendix, no surrounding fat stranding.) Ordered Tests: Active Orders 24 hr Category Date Time Status EKG-ER Only STAT Care 09/15/18 17:57 Active IV Insertion STAT Care 09/15/18 17:57 Active ABDOMEN AND PELVIS W/0 CONTRAS [CT] Stat Exams 09/15/18 17:58 Taken CHEST 2 VIEWS (PA AND LAT) Stat Exams 09/15/18 17:58 Taken CBC W DIFF Stat Lab 09/15/18 17:30 Completed CMP Stat Lab 09/15/18 17:30 Completed HCG QUALITATIVE,SERUM Stat Lab 09/15/18 17:30 Completed LIPASE Stat Lab 09/15/18 17:30 Completed Lactic Acid Stat Lab 09/15/18 18:15 Completed TROPONIN Q3H Lab 09/15/18 17:30 Completed TROPONIN Q3H Lab 09/15/18 21:00 Ordered TROPONIN Q3H Lab 09/16/18 00:00 Ordered TROPONIN Q3H Lab 09/16/18 03:00 Ordered TROPONIN Q3H Lab 09/16/18 06:00 Ordered Medication Summary Discontinued Medications Generic Name Dose Route Start Last Admin Trade Name Freq PRN Reason Stop Dose Admin Morphine Sulfate 2 mg 09/15/18 17:57 09/15/18 18:10 Morphine Sulfate 2 Mg Inj IV 09/15/18 17:58 2 mg STAT ONE Administration Morphine Sulfate Confirm 09/15/18 18:07 Morphine Sulfate 2 Mg Inj Administered 09/15/18 18:08 Dose 2 mg .ROUTE .STK-MED ONE Ondansetron HCl 4 mg 09/15/18 17:57 09/15/18 18:16 Zofran 4 Mg/2 Ml Vial IV 09/15/18 17:58 4 mg STAT ONE Administration Ondansetron HCl Confirm 09/15/18 18:07 Zofran 4 Mg/2 Ml Vial Administered 09/15/18 18:08 Dose 4 mg .ROUTE .STK-MED ONE Lab/Rad Data: Laboratory Result Diagrams 09/15/18 17:30 09/15/18 17:30 Laboratory Results 09/15/18 09/15/18 09/15/18 Range/Units 18:15 17:30 17:30 WBC (4.0-10.5) K/mm3 RBC (4.1-5.4) M/mm3 Hgb (12.0-16.0) gm/dl Hct (35-47) % MCV (78-100) fl MCH (26-32) pg MCHC (32-36) g/dl RDW (11.5-14.0) % Plt Count (150-450) K/mm3 MPV (6-9.5) fl Gran % (36.0-66.0) % Eos # (Auto) (0-0.5) Absolute Lymphs (auto) (1.0-4.6) Absolute Monos (auto) (0.0-1.3) Lymphocytes % (24.0-44.0) % Monocytes % (0.0-12.0) % Eosinophils % (0.00-5.0) % Basophils % (0.0-0.4) % Absolute Granulocytes (1.4-6.9) Basophils # (0-0.4) Sodium (137-145) mmol/L Potassium (3.5-5.1) mmol/L Chloride (98-107) mmol/L Carbon Dioxide (22-30) mmol/L Anion Gap (5-15) MEQ/L BUN (7-17) mg/dL Creatinine (0.52-1.04) mg/dL Estimated GFR ML/MIN Glucose (74-106) mg/dL Lactic Acid 0.8 (0.4-2.0) Calcium (8.4-10.2) mg/dL Total Bilirubin (0.2-1.3) mg/dL AST (14-36) U/L ALT (0-35) U/L Alkaline Phosphatase (38-126) U/L Troponin I < 0.012 (0.000-0.034) ng/mL Serum Total Protein (6.3-8.2) g/dL Albumin (3.5-5.0) g/dL Lipase (23-300) U/L Serum , Qual NEGATIVE (Negative) 09/15/18 09/15/18 Range/Units 17:30 17:30 WBC 8.2 (4.0-10.5) K/mm3 RBC 4.11 (4.1-5.4) M/mm3 Hgb 11.6 L (12.0-16.0) gm/dl Hct 36.2 (35-47) % MCV 88.1 (78-100) fl MCH 28.2 (26-32) pg MCHC 32.0 (32-36) g/dl RDW 15.3 H (11.5-14.0) % Plt Count 206 (150-450) K/mm3 MPV 11.1 H (6-9.5) fl Gran % 53.2 (36.0-66.0) % Eos # (Auto) 0.20 (0-0.5) Absolute Lymphs (auto) 2.72 (1.0-4.6) Absolute Monos (auto) 0.85 (0.0-1.3) Lymphocytes % 33.3 (24.0-44.0) % Monocytes % 10.4 (0.0-12.0) % Eosinophils % 2.5 (0.00-5.0) % Basophils % 0.6 (0.0-0.4) % Absolute Granulocytes 4.34 (1.4-6.9) Basophils # 0.05 (0-0.4) Sodium 138 (137-145) mmol/L Potassium 3.8 (3.5-5.1) mmol/L Chloride 104 (98-107) mmol/L Carbon Dioxide 29 (22-30) mmol/L Anion Gap 9.2 (5-15) MEQ/L BUN 11 (7-17) mg/dL Creatinine 0.89 (0.52-1.04) mg/dL Estimated GFR > 60.0 ML/MIN Glucose 118 H (74-106) mg/dL Lactic Acid (0.4-2.0) Calcium 8.8 (8.4-10.2) mg/dL Total Bilirubin 0.10 L (0.2-1.3) mg/dL AST 21 (14-36) U/L ALT 19 (0-35) U/L Alkaline Phosphatase 81 (38-126) U/L Troponin I (0.000-0.034) ng/mL Serum Total Protein 6.7 (6.3-8.2) g/dL Albumin 3.5 (3.5-5.0) g/dL Lipase 76 (23-300) U/L Serum , Qual (Negative) - Progress Progress: improved Progress Note: 09/15/18 19:[address] results of the abdomen and pelvis with the patient. We discussed that the appendix has possible contrast material in it from a prior study of the abdomen one month ago. We also discussed that there was no fat stranding. The patient wanted to go home to be with her . She will return if the pain becomes worse. Counseled pt/family regarding: lab results, diagnosis, need for follow-up, rad results - Departure Time of Disposition: 19:57 Departure Disposition: Home Clinical Impression: Abdominal pain Condition: Stable Critical Care Time: No Referrals: DOCTOR,NO FAMILY [Primary Care Provider] - Additional Instructions: You have abdominal pain. The cause is uncertain at this time. You were given morphine 2 mg, morphine 4 mg, and Zofran 4 mg by IV in the ER. You were sent home with [place] 2 tablets. Take one tablet every 4-6 hours as needed for pain. If the condition worsens, please return to the ER. Otherwise, follow-up with your primary medical doctor on Monday.
[2018-09-15] MEDS ORDERED: MORPHINE SULFATE 2 MG INJ IV ONE (17:57)
[2018-09-15] MEDS ORDERED: Zofran 4 MG/2 ML VIAL IV ONE (17:57)
[2018-09-15] MEDS ORDERED: MORPHINE SULFATE 2 MG INJ ONE (18:07)
[2018-09-15] MEDS ORDERED: Zofran 4 MG/2 ML VIAL ONE (18:07)
[2018-09-15 18:10] LABS: BASOPHIL % 0.6 % (0.0-0.4); Basophil (Absolute #) 0.05 (0-0.4); Eosinophil % 2.5 % (0.00-5.0); Granulocyte Absolute (ANC) 4.34 (1.4-6.9); Granulocytes % 53.2 % (36.0-66.0); Hematocrit 36.2 % (35-47); Hemoglobin 11.6 gm/dl (12.0-16.0); Lymphocyte (Absolute #) 2.72 (1.0-4.6); Lymphocytes % 33.3 % (24.0-44.0); Mean Cell Volume 88.1 fl (78-100); Mean Corpuscular Hemoglobin 28.2 pg (26-32); Mean Platelet Volume 11.1 fl (6-9.5); Monocyte (Absolute #) 0.85 (0.0-1.3); Monocytes % 10.4 % (0.0-12.0); Platelet Count 206 K/mm3 (150-450); Red Blood Count 4.11 M/mm3 (4.1-5.4); Red Cell Distribution Width 15.3 % (11.5-14.0); White Blood Count 8.2 K/mm3 (4.0-10.5)
[2018-09-15 18:14] LABS: ALBUMIN 3.5 g/dL (3.5-5.0); ALKALINE PHOSPHATASE 81 U/L (38-126); ANION GAP 9.2 MEQ/L (5-15); BLOOD UREA NITROGEN 11 mg/dL (7-17); CHLORIDE 104 mmol/L (98-107); Calcium 8.8 mg/dL (8.4-10.2); Carbon Dioxide 29 mmol/L (22-30); Creatinine 1 0.89 mg/dL (0.52-1.04); Glucose 118 mg/dL (74-106); LIPASE 76 U/L (23-300); Potassium 3.8 mmol/L (3.5-5.1); SGOT/AST 21 U/L (14-36); SGPT/ALT 19 U/L (0-35); SODIUM 138 mmol/L (137-145); Total Protein 6.7 g/dL (6.3-8.2)
[2018-09-15] MEDS ORDERED: MORPHINE SULFATE 4 MG INJ IV ONE (19:54)
[2018-09-15] MEDS ORDERED: NORCO 5/325 MG PO ONE (19:55)
[2018-09-15] MEDS ORDERED: MORPHINE SULFATE 4 MG INJ ONE (20:00)
[2018-09-15] MEDS ORDERED: NORCO 5/325 MG ONE (20:01)
[2018-09-15 20:05] VITALS: BP 113/93; PULSE 84; O2SAT 99
--- NOTE | 2018-09-15 21:35 | XRAY ---
Indication: Right abdomen pain 2 days. Multiple contiguous axial images obtained through the abdomen and pelvis without contrast as ordered. Comparison: None Lung bases are clear. Heart is not enlarged. Stable small hiatal hernia. Noncontrasted stomach and bowel loops are nonobstructed. Normal appendix. New 1.5 cm right ovary cyst. No free fluid/air. Stable fatty liver. Remaining liver, gallbladder, pancreas, spleen, degenerative glands, kidneys, ureters, bladder, uterus, and aorta appear unremarkable for noncontrast exam. Osseous structures intact. No ventral or inguinal hernias. Impression: 1. Stable small hiatal hernia and fatty liver. 2. No acute intra-abdominal/pelvic abnormalities on this noncontrast exam. Comment: Preliminary interpretation was made by [facility] [[email or web address]]. No discrepancy. CTDI 23.68
--- NOTE | 2018-09-15 21:35 | XRAY ---
Indication: Left-sided chest pain. Comparison: March 07, 2018. PA/lateral chest again demonstrates normal heart, lungs, and bony thorax.
== END 2018-09-15 20:16 | disposition home or self-care (01) ==
LOC: ED 16:31
DX: R10.31 Right lower quadrant pain (principal); R07.9 Chest pain, unspecified; R11.0 Nausea; Z79.899 Other long term (current) drug therapy
CPT/HCPCS: 36000; 36415; 71046; 74176; 80053; 81025; 83605; 83690; 84484; 85025; 93005; 96374; 96375; 96376; 99284; J2270; J2405; A9270-GY

== ENCOUNTER 2018-09-16 13:56 | Emergency (ER) | payer OTHER ==
[2018-09-16] MEDS ORDERED: Sodium Chloride 0.9% 1000 ML 1,000 ML IV STA (14:30)
--- NOTE | 2018-09-16 14:38 | ERPHSYRPT ---
- History of Present Illness Time Seen by Provider: 09/16/18 14:20 Historian: patient Exam Limitations: clinical condition Patient Subjective Stated Complaint: pt here for pain to right lower abd for 4 days now, was seen in er yesterday, no fever, nausea but no vomiting. Triage Nursing Assessment: pt alert, arrived per wc, guarding right side of abd , abd soft, tender to right side, pt has walking boot on left leg Physician History: PATIENT WITH HISTORY OF DEPRESSION, KIDNEY STONES WITH PREVIOUSLY LITHOTRIPSY COMPLAINS OF RIGHT LOWER ABDOMINAL PAIN X 4 DAYS, EVALUATED IN EMERGENCY ROOM YESTERDAY WITH NORMAL STUDIES, NEGATIVE ABDOMINAL PELVIC CT SCAN, Timing/Duration: day(s) Activities at Onset: none Quality: sharpness, stabbing Abdominal Pain Onset Location: RLQ Pain Radiation: flank Severity of Pain-Max: severe Severity of Pain-Current: severe Modifying Factors: Improves With: movement Associated Symptoms: nausea Previous symptoms: same symptoms as today Allergies/Adverse Reactions: etodolac [From Lodine] Allergy (Verified 09/16/18 14:12) fentanyl Allergy (Verified 09/16/18 14:12) ibuprofen Allergy (Verified 09/16/18 14:12) ketorolac [From Toradol] Allergy (Verified 09/16/18 14:12) meloxicam [From Mobic] Allergy (Verified 09/16/18 14:12) naproxen Allergy (Verified 09/16/18 14:12) orphenadrine [From Norflex] Allergy (Verified 09/16/18 14:12) tramadol [From Ultram] Allergy (Verified 09/16/18 14:12) Home Medications: Apixaban [Eliquis] 5 mg BID 02/27/17 [History] Ranitidine HCl [Zantac] 300 mg DAILY 02/27/17 [History] Clonazepam 1 mg PO BIDPRN PRN 03/07/18 [History] Gabapentin Enacarbil [Horizant] 600 mg PO DAILY 03/07/18 [History] Cyclobenzaprine HCl 10 mg [Cyclobenzaprine 10 MG] 10 mg PO TID PRN [History] Desvenlafaxine [Khedezla] 50 mg PO DAILY 04/11/18 [History] Olanzapine Odt 5 mg [Zyprexa Zydis 5 MG] 5 mg PO DAILY 04/11/18 [History] Oxycodone HCl/Acetaminophen [Oxycodon-Acetaminophen 7.5-325] 1 tab PO TIDPRN PRN 04/11/18 [History] Prazosin HCl [Minipress] 3 mg PO QHS 04/11/18 [History] Hx Tetanus, Diphtheria Vaccination/Date Given: No Hx Influenza Vaccination/Date Given: No Hx Pneumococcal Vaccination/Date Given: No Immunizations Up to Date: Yes - Review of Systems Constitutional: No Fever, No Chills Eyes: No Symptoms Ears, Nose, & Throat: No Symptoms Respiratory: No Symptoms, No Cough, No Dyspnea Cardiac: No Symptoms, No Chest Pain, No Edema, No Syncope Abdominal/Gastrointestinal: Abdominal Pain, No Nausea, No Vomiting, No Diarrhea Genitourinary Symptoms: No Symptoms, No Dysuria Musculoskeletal: No Symptoms, No Back Pain, No Neck Pain Skin: No Rash Neurological: No Dizziness, No Focal Weakness, No Sensory Changes Psychological: No Symptoms Endocrine: No Symptoms All Other Systems: Reviewed and Negative - Past Medical History Pertinent Past Medical History: Yes Neurological History: No Pertinent History ENT History: No Pertinent History Cardiac History: No Pertinent History Respiratory History: No Pertinent History Endocrine Medical History: No Pertinent History Musculoskeletal History: No Pertinent History, Other GI Medical History: GERD History: No Pertinent History Psycho-Social History: Anxiety, Bipolar, Depression, Other Female Reproductive Disorders: No Pertinent History Other Medical History: DVT Left leg,ptsd - Past Surgical History Past Surgical History: Yes Neuro Surgical History: No Pertinent History Cardiac: No Pertinent History Respiratory: No Pertinent History Gastrointestinal: No Pertinent History Genitourinary: Other Musculoskeletal: No Pertinent History Female Surgical History: Section Other Surgical History: lithotripsy for kidney stones, pt states todays pain is different - Social History Smoking Status: Current every day smoker How long have you smoked: 22 years Exposure to second hand smoke: Yes Drug Use: none Patient Lives Alone: No - Female History Hx Last Menstrual Period: sep 01 Hx Now: No - Nursing Vital Signs Nursing Vital Signs: Initial Vital Signs Temperature 98.8 F 09/16/18 14:08 Pulse Rate 99 H 09/16/18 14:08 Respiratory Rate 18 09/16/18 14:08 Blood Pressure 139/64 09/16/18 14:08 O2 Sat by Pulse Oximetry 96 09/16/18 14:08 Pain Scale Pain Intensity 7 - Physical Exam General Appearance: no apparent distress, alert Eye Exam: PERRL/EOMI, eyes nml inspection Ears, Nose, Throat Exam: normal ENT inspection, pharynx normal, moist mucous membranes Neck Exam: normal inspection, non-tender, supple, full range of motion Respiratory Exam: normal breath sounds, lungs clear, No respiratory distress Cardiovascular Exam: regular rate/rhythm, normal heart sounds Gastrointestinal/Abdomen Exam: soft, normal bowel sounds, tenderness (RIGHT LOWER ABDOMINAL TENDERNESS), No mass Pelvic Exam: not done Back Exam: normal inspection, normal range of motion, CVA tenderness (MODERATE RIGHT CVA TENDERNESS AND RIGHT SACROILIAC TENDERNESS), No vertebral tenderness Extremity Exam: normal inspection, normal range of motion, pelvis stable Neurologic Exam: alert, oriented x 3, cooperative, normal mood/affect, nml cerebellar function, sensation nml, No motor deficits Skin Exam: normal color, warm, dry SpO2 Interpretation: normal SpO2: 96 Oxygen Delivery: Room Air Ordered Tests: Active Orders 24 hr Category Date Time Status IV Insertion STAT Care 09/16/18 15:12 Active AMYLASE Stat Lab 09/16/18 14:45 Completed BMP Stat Lab 09/16/18 14:45 Completed CBC W DIFF Stat Lab 09/16/18 14:45 Completed LIPASE Stat Lab 09/16/18 14:45 Completed UA W/RFX UR CULTURE Stat Lab 09/16/18 14:31 Uncollected Medication Summary Discontinued Medications Generic Name Dose Route Start Last Admin Trade Name Chris PRN Reason Stop Dose Admin Sodium Chloride 1,000 mls @ 999 mls/hr 09/16/18 14:30 09/16/18 15:11 Sodium Chloride 0.9% 1000 Ml IV 09/16/18 15:30 999 mls/hr .Q1H1M STA Administration Sodium Chloride Confirm 09/16/18 15:05 Sodium Chloride 0.9% 1000 Ml Administered 09/16/18 15:06 Dose 1,000 mls @ ud .ROUTE .STK-MED ONE Morphine Sulfate 4 mg 09/16/18 15:55 09/16/18 15:58 Morphine Sulfate 4 Mg Inj IV 09/16/18 15:56 4 mg STAT ONE Administration Morphine Sulfate Confirm 09/16/18 15:57 Morphine Sulfate 4 Mg Inj Administered 09/16/18 15:58 Dose 4 mg .ROUTE .STK-MED ONE Ondansetron HCl 4 mg 09/16/18 15:55 09/16/18 15:58 Zofran 4 Mg/2 Ml Vial IV 09/16/18 15:56 4 mg STAT ONE Administration Ondansetron HCl Confirm 09/16/18 15:56 Zofran 4 Mg/2 Ml Vial Administered 09/16/18 15:57 Dose 4 mg .ROUTE .STK-MED ONE Lab/Rad Data: Laboratory Result Diagrams 09/16/18 14:45 09/16/18 14:45 Laboratory Results 09/16/18 09/16/18 Range/Units 14:45 14:45 WBC 8.9 (4.0-10.5) K/mm3 RBC 4.52 (4.1-5.4) M/mm3 Hgb 12.5 (12.0-16.0) gm/dl Hct 39.8 (35-47) % MCV 88.1 (78-100) fl MCH 27.7 (26-32) pg MCHC 31.4 L (32-36) g/dl RDW 15.7 H (11.5-14.0) % Plt Count 218 (150-450) K/mm3 MPV 11.3 H (6-9.5) fl Gran % 56.9 (36.0-66.0) % Eos # (Auto) 0.24 (0-0.5) Absolute Lymphs (auto) 2.91 (1.0-4.6) Absolute Monos (auto) 0.63 (0.0-1.3) Lymphocytes % 32.6 (24.0-44.0) % Monocytes % 7.1 (0.0-12.0) % Eosinophils % 2.7 (0.00-5.0) % Basophils % 0.7 (0.0-0.4) % Absolute Granulocytes 5.08 (1.4-6.9) Basophils # 0.06 (0-0.4) Sodium 139 (137-145) mmol/L Potassium 4.2 (3.5-5.1) mmol/L Chloride 105 (98-107) mmol/L Carbon Dioxide 28 (22-30) mmol/L Anion Gap 10.5 (5-15) MEQ/L BUN 12 (7-17) mg/dL Creatinine 0.79 (0.52-1.04) mg/dL Estimated GFR > 60.0 ML/MIN Glucose 114 H (74-106) mg/dL Calcium 8.8 (8.4-10.2) mg/dL Amylase 46 (30-110) U/L Lipase 53 (23-300) U/L - Progress Progress: pain not gone completely Progress Note: 09/16/18 15:23 IV NORMAL SALINE 1 LITER BOLUS OVER 1 HOUR, ZOFRAN 4MG. MORPHINE 4MG IV THE ABDOMINAL PELVIC CT CONSISTENT WITH NEW 1.5CM OVARIAN CYST, NO FREE FLUID / AIR, STABLE SMALL HIATAL HERNIA AND FATTY LIVER, NORMAL APPENDIX. 09/16/18 16:19 ALL LAB TEST REVIEWED AND ARE NORMAL CBC WITH WBC 8,900 Counseled pt/family regarding: lab results, diagnosis - Departure Time of Disposition: 16:30 Departure Disposition: Home Clinical Impression: RIGHT OVARIAN CYST Condition: Stable Critical Care Time: No Referrals: DOCTOR,NO FAMILY [Primary Care Provider] - Additional Instructions: CONSULT YOUR PRIMARY CARE PROVIDER AND TIPPING MACHINE OPERATOR FOR EVALUATION OF RIGHT OVARIAN CYST. PERCOGESIC 1 TABLET EVERY 4 HOURS NEEDED FOR PAIN. ZOFRAN 4MG EVERY 6 HOURS FOR NAUSEA. Prescriptions: Acetaminophen/Diphenhydramine [Percogesic 325-12.5 mg Tablet] 2 each PO Q4HPRN PRN #16 tablet PRN Reason: Pain
[2018-09-16] MEDS ORDERED: Sodium Chloride 0.9% 1000 ML 1,000 ML ONE (15:05)
[2018-09-16 15:10] LABS: BASOPHIL % 0.7 % (0.0-0.4); Basophil (Absolute #) 0.06 (0-0.4); Eosinophil % 2.7 % (0.00-5.0); Eosinophil (Absolute #) 0.24 (0-0.5); Granulocyte Absolute (ANC) 5.08 (1.4-6.9); Granulocytes % 56.9 % (36.0-66.0); Hematocrit 39.8 % (35-47); Hemoglobin 12.5 gm/dl (12.0-16.0); Lymphocyte (Absolute #) 2.91 (1.0-4.6); Lymphocytes % 32.6 % (24.0-44.0); Mean Cell Volume 88.1 fl (78-100); Mean Corpuscular Hemoglobin 27.7 pg (26-32); Mean Corpuscular Hgb Concent. 31.4 g/dl (32-36); Mean Platelet Volume 11.3 fl (6-9.5); Monocyte (Absolute #) 0.63 (0.0-1.3); Monocytes % 7.1 % (0.0-12.0); Platelet Count 218 K/mm3 (150-450); Red Blood Count 4.52 M/mm3 (4.1-5.4); Red Cell Distribution Width 15.7 % (11.5-14.0); White Blood Count 8.9 K/mm3 (4.0-10.5)
[2018-09-16 15:38] LABS: AMYLASE 46 U/L (30-110); ANION GAP 10.5 MEQ/L (5-15); BLOOD UREA NITROGEN 12 mg/dL (7-17); CHLORIDE 105 mmol/L (98-107); Calcium 8.8 mg/dL (8.4-10.2); Carbon Dioxide 28 mmol/L (22-30); Creatinine 1 0.79 mg/dL (0.52-1.04); Glucose 114 mg/dL (74-106); LIPASE 53 U/L (23-300); Potassium 4.2 mmol/L (3.5-5.1); SODIUM 139 mmol/L (137-145)
[2018-09-16] MEDS ORDERED: Zofran 4 MG/2 ML VIAL IV ONE (15:55)
[2018-09-16] MEDS ORDERED: MORPHINE SULFATE 4 MG INJ IV ONE (15:55)
[2018-09-16] MEDS ORDERED: Zofran 4 MG/2 ML VIAL ONE (15:56)
[2018-09-16] MEDS ORDERED: MORPHINE SULFATE 4 MG INJ ONE (15:57)
[2018-09-16 16:47] VITALS: BP 122/62; PULSE 84; O2SAT 98
== END 2018-09-16 16:49 | disposition home or self-care (01) ==
LOC: ED 13:56
DX: N83.201 Unspecified ovarian cyst, right side (principal); R11.0 Nausea; Z79.899 Other long term (current) drug therapy
CPT/HCPCS: 36000; 36415; 80048; 82150; 83690; 85025; 96360; 96365; 96374; 96375; 99284; J2270; J2405

== ENCOUNTER 2018-12-12 11:47 | Emergency (ER) | payer OTHER ==
[2018-12-12] MEDS ORDERED: Zofran 4 MG/2 ML VIAL IV ONE (12:18)
[2018-12-12] MEDS ORDERED: Sodium Chloride 0.9% 1000 ML 1,000 ML IV STA (12:18)
--- NOTE | 2018-12-12 12:24 | ERPHSYRPT ---
- History of Present Illness Time Seen by Provider: 12/12/18 12:11 Historian: patient Exam Limitations: no limitations Patient Subjective Stated Complaint: shooting pains down left arm, pain in RLQ that radiates to the back Triage Nursing Assessment: Pt c/o of sharp shooting pains that radiate down her left arm, pain in RLQ that radiates to her lower right back, all began when she woke up at 1100 today, hx of kidney stones, vitals wnl, rates pain 8/10 in her back, pulses normal, doesn't appear to be in any distress Physician History: 33-year-old white female with history of chronic pain who has been seeing a pain controller repairer and tester. Arrives with complaint of pain in her right lower quadrant symptoms since this a.m. at 11:00 she states she's been nauseous no urinary symptoms she does have some pain in her lower back as well. Past medical history includes GERD, anxiety, bipolar disorder, DVT in the left leg, PTSD, chronic pain syndrome. Past surgical history includes , lithotripsy for her kidneys, tubal ligation. Timing/Duration: today (11 AM today) Activities at Onset: none Quality: sharpness Abdominal Pain Onset Location: RLQ Pain Radiation: back (right low back) Severity of Pain-Max: moderate Severity of Pain-Current: moderate Modifying Factors: Improves With: nothing Associated Symptoms: back (right low back pain), No chest pain, No diaphoresis, No diarrhea Allergies/Adverse Reactions: etodolac [From Lodine] Allergy (Verified 12/12/18 12:07) fentanyl Allergy (Verified 12/12/18 12:07) ibuprofen Allergy (Verified 12/12/18 12:07) ketorolac [From Toradol] Allergy (Verified 12/12/18 12:07) meloxicam [From Mobic] Allergy (Verified 12/12/18 12:07) naproxen Allergy (Verified 12/12/18 12:07) orphenadrine [From Norflex] Allergy (Verified 12/12/18 12:07) tramadol [From Ultram] Allergy (Verified 12/12/18 12:07) Home Medications: Ranitidine HCl [Zantac] 300 mg DAILY 02/27/17 [History] Cyclobenzaprine HCl 10 mg [Cyclobenzaprine 10 MG] 10 mg PO TID PRN [History] Desvenlafaxine [Khedezla] 100 mg PO DAILY 04/11/18 [History] Prazosin HCl [Minipress] 3 mg PO QHS 04/11/18 [History] Divalproex Sodium [Divalproex Sodium ER] 500 mg PO DAILY 12/12/18 [History] Pregabalin [Lyrica 75 mg Cap] 75 mg PO DAILY 12/12/18 [History] Quetiapine Fumarate [Seroquel] 100 mg PO DAILY 12/12/18 [History] Hx Tetanus, Diphtheria Vaccination/Date Given: No Hx Influenza Vaccination/Date Given: No Hx Pneumococcal Vaccination/Date Given: No - Review of Systems Constitutional: No Fever, No Chills Eyes: No Symptoms Ears, Nose, & Throat: No Symptoms Respiratory: No Cough, No Dyspnea Cardiac: No Chest Pain, No Edema, No Syncope Abdominal/Gastrointestinal: Abdominal Pain (Right lower quadrant pain), Nausea, No Vomiting, No Diarrhea, No Constipation, No Hematemesis, No Hematochezia, No Melena, No Dysphagia, No Appetite Changes Genitourinary Symptoms: No Dysuria Musculoskeletal: No Back Pain, No Neck Pain Skin: No Rash Neurological: No Dizziness, No Focal Weakness, No Sensory Changes Psychological: No Symptoms Endocrine: No Symptoms All Other Systems: Reviewed and Negative - Past Medical History Pertinent Past Medical History: Yes Neurological History: No Pertinent History ENT History: No Pertinent History Cardiac History: No Pertinent History Respiratory History: No Pertinent History Endocrine Medical History: No Pertinent History Musculoskeletal History: No Pertinent History, Other GI Medical History: GERD History: No Pertinent History Psycho-Social History: Anxiety, Bipolar, Depression, Other Female Reproductive Disorders: No Pertinent History Other Medical History: DVT Left leg,ptsd, restless leg syndrome - Past Surgical History Past Surgical History: Yes Neuro Surgical History: No Pertinent History Cardiac: No Pertinent History Respiratory: No Pertinent History Gastrointestinal: Cholecystectomy Genitourinary: Other Musculoskeletal: No Pertinent History Female Surgical History: Section, Tubal Ligation Other Surgical History: lithotripsy for kidney stones, pt states todays pain is different - Social History Smoking Status: Current every day smoker How long have you smoked: 22 years Exposure to second hand smoke: Yes Drug Use: none Patient Lives Alone: No - Female History Hx Last Menstrual Period: 11/24/2018 Hx Now: No (tubal) - Nursing Vital Signs Nursing Vital Signs: Initial Vital Signs Temperature 97.5 F 12/12/18 11:57 Pulse Rate 86 12/12/18 11:57 Blood Pressure 121/79 12/12/18 11:57 O2 Sat by Pulse Oximetry 98 12/12/18 11:57 Pain Scale Pain Intensity 6 - Physical Exam General Appearance: no apparent distress, obese Eye Exam: PERRL/EOMI, eyes nml inspection Ears, Nose, Throat Exam: normal ENT inspection, pharynx normal, moist mucous membranes Neck Exam: normal inspection, non-tender, supple, full range of motion Respiratory Exam: normal breath sounds, lungs clear, No respiratory distress Cardiovascular Exam: regular rate/rhythm, normal heart sounds Gastrointestinal/Abdomen Exam: soft, normal bowel sounds, tenderness (Slight right lower quadrant tenderness) Back Exam: normal inspection, normal range of motion, other (Mild right lower lumbar tenderness), No CVA tenderness, No vertebral tenderness Extremity Exam: normal inspection, normal range of motion, pelvis stable Neurologic Exam: alert, oriented x 3, cooperative, staying machine operator II-XII nml as tested, normal mood/affect, nml cerebellar function, sensation nml, No motor deficits Skin Exam: normal color, warm, dry SpO2 Interpretation: normal (98%) SpO2: 98 Ordered Tests: Active Orders 24 hr Category Date Time Status IV Insertion STAT Care 12/12/18 12:18 Active AMYLASE Stat Lab 12/12/18 12:19 Completed CBC W DIFF Stat Lab 12/12/18 12:18 Completed CMP Stat Lab 12/12/18 12:18 Completed CULTURE,URINE Stat Lab 12/12/18 13:11 Received HCG QUALITATIVE,SERUM Stat Lab 12/12/18 Completed LIPASE Stat Lab 12/12/18 12:19 Completed UA W/RFX UR CULTURE Stat Lab 12/12/18 13:11 Completed Medication Summary Discontinued Medications Generic Name Dose Route Start Last Admin Trade Name Freq PRN Reason Stop Dose Admin Sodium Chloride 1,000 mls @ 999 mls/hr 12/12/18 12:18 12/12/18 13:00 Sodium Chloride 0.9% 1000 Ml IV 12/12/18 13:18 999 mls/hr .Q1H1M STA Administration Sodium Chloride Confirm 12/12/18 12:29 Sodium Chloride 0.9% 1000 Ml Administered 12/12/18 12:30 Dose 1,000 mls @ ud .ROUTE .STK-MED ONE Morphine Sulfate 4 mg 12/12/18 13:48 Morphine Sulfate 4 Mg Inj IV 12/12/18 13:49 STAT ONE Morphine Sulfate Confirm 12/12/18 14:09 Morphine Sulfate 4 Mg Inj Administered 12/12/18 14:10 Dose 4 mg .ROUTE .STK-MED ONE Ondansetron HCl 4 mg 12/12/18 12:18 12/12/18 13:00 Zofran 4 Mg/2 Ml Vial IV 12/12/18 12:19 4 mg STAT ONE Administration Ondansetron HCl Confirm 12/12/18 12:29 Zofran 4 Mg/2 Ml Vial Administered 12/12/18 12:30 Dose 4 mg .ROUTE .STK-MED ONE Trimethoprim/Sulfamethoxazole 1 tab 12/12/18 13:55 Bactrim Ds Tablet PO 12/12/18 13:56 STAT ONE Trimethoprim/Sulfamethoxazole Confirm 12/12/18 14:09 Bactrim Ds Tablet Administered 12/12/18 14:10 Dose 1 tab PO .STK-MED ONE Lab/Rad Data: Laboratory Result Diagrams 12/12/18 12:18 12/12/18 12:18 Laboratory Results 12/12/18 12/12/18 12/12/18 Range/Units Unknown 13:11 12:19 WBC (4.0-10.5) K/mm3 RBC (4.1-5.4) M/mm3 Hgb (12.0-16.0) gm/dl Hct (35-47) % MCV (78-100) fl MCH (26-32) pg MCHC (32-36) g/dl RDW (11.5-14.0) % Plt Count (150-450) K/mm3 MPV (6-9.5) fl Gran % (36.0-66.0) % Eos # (Auto) (0-0.5) Absolute Lymphs (auto) (1.0-4.6) Absolute Monos (auto) (0.0-1.3) Lymphocytes % (24.0-44.0) % Monocytes % (0.0-12.0) % Eosinophils % (0.00-5.0) % Basophils % (0.0-0.4) % Absolute Granulocytes (1.4-6.9) Basophils # (0-0.4) Sodium (137-145) mmol/L Potassium (3.5-5.1) mmol/L Chloride (98-107) mmol/L Carbon Dioxide (22-30) mmol/L Anion Gap (5-15) MEQ/L BUN (7-17) mg/dL Creatinine (0.52-1.04) mg/dL Estimated GFR ML/MIN Glucose (74-106) mg/dL Calcium (8.4-10.2) mg/dL Total Bilirubin (0.2-1.3) mg/dL AST (14-36) U/L ALT (0-35) U/L Alkaline Phosphatase (38-126) U/L Serum Total Protein (6.3-8.2) g/dL Albumin (3.5-5.0) g/dL Amylase < 30 L (30-110) U/L Lipase 62 (23-300) U/L Serum , Qual NEGATIVE (Negative) Urine Color YELLOW (YELLOW) Urine Appearance CLOUDY (CLEAR) Urine pH 8.0 (5-6) Ur Specific [place] 1.021 (1.005-1.025) Urine Protein NEGATIVE (Negative) Urine Ketones NEGATIVE (NEGATIVE) Urine Blood NEGATIVE (0-5) Dima/ul Urine Nitrite NEGATIVE (NEGATIVE) Urine Bilirubin NEGATIVE (NEGATIVE) Urine Urobilinogen NEGATIVE (0-1) mg/dL Ur Leukocyte Esterase SMALL (NEGATIVE) Urine WBC (Auto) 11-15 (0-5) /HPF Urine RBC (Auto) 3-5 (0-2) /HPF U Epithel Cells (Auto) MANY (FEW) /HPF Urine Bacteria (Auto) NONE (NEGATIVE) /HPF Urine Mucus (Auto) SLIGHT (NEGATIVE) /HPF Urine Culture Reflexed YES (NO) Urine Glucose NEGATIVE (NEGATIVE) mg/dL 12/12/18 12/12/18 Range/Units 12:18 12:18 WBC 6.1 (4.0-10.5) K/mm3 RBC 4.44 (4.1-5.4) M/mm3 Hgb 11.7 L (12.0-16.0) gm/dl Hct 38.1 (35-47) % MCV 85.8 (78-100) fl MCH 26.3 (26-32) pg MCHC 30.7 L (32-36) g/dl RDW 16.2 H (11.5-14.0) % Plt Count 230 (150-450) K/mm3 MPV 10.2 H (6-9.5) fl Gran % 53.0 (36.0-66.0) % Eos # (Auto) 0.23 (0-0.5) Absolute Lymphs (auto) 2.08 (1.0-4.6) Absolute Monos (auto) 0.53 (0.0-1.3) Lymphocytes % 33.9 (24.0-44.0) % Monocytes % 8.6 (0.0-12.0) % Eosinophils % 3.7 (0.00-5.0) % Basophils % 0.8 (0.0-0.4) % Absolute Granulocytes 3.25 (1.4-6.9) Basophils # 0.05 (0-0.4) Sodium 139 (137-145) mmol/L Potassium 4.5 (3.5-5.1) mmol/L Chloride 104 (98-107) mmol/L Carbon Dioxide 28 (22-30) mmol/L Anion Gap 11.5 (5-15) MEQ/L BUN 9 (7-17) mg/dL Creatinine 0.76 (0.52-1.04) mg/dL Estimated GFR > 60.0 ML/MIN Glucose 114 H (74-106) mg/dL Calcium 8.9 (8.4-10.2) mg/dL Total Bilirubin 0.20 (0.2-1.3) mg/dL AST 32 (14-36) U/L ALT 39 H (0-35) U/L Alkaline Phosphatase 92 (38-126) U/L Serum Total Protein 7.1 (6.3-8.2) g/dL Albumin 3.7 (3.5-5.0) g/dL Amylase (30-110) U/L Lipase (23-300) U/L Serum , Qual (Negative) Urine Color (YELLOW) Urine Appearance (CLEAR) Urine pH (5-6) Ur Specific [place] (1.005-1.025) Urine Protein (Negative) Urine Ketones (NEGATIVE) Urine Blood (0-5) Dima/ul Urine Nitrite (NEGATIVE) Urine Bilirubin (NEGATIVE) Urine Urobilinogen (0-1) mg/dL Ur Leukocyte Esterase (NEGATIVE) Urine WBC (Auto) (0-5) /HPF Urine RBC (Auto) (0-2) /HPF U Epithel Cells (Auto) (FEW) /HPF Urine Bacteria (Auto) (NEGATIVE) /HPF Urine Mucus (Auto) (NEGATIVE) /HPF Urine Culture Reflexed (NO) Urine Glucose (NEGATIVE) mg/dL - Progress Progress: improved Progress Note: 12/12/18 12:25 33-year-old white female with history of chronic pain syndrome was on oxycodone 7.5/325 who felt this #60 of these tablets on 12/03/2018. She sees a pain controller repairer and tester in [facility]. She states she was told by the pain controller repairer and tester to stop the several days ago because she was having nausea. She states that today she is having right lower quadrant abdominal pain sharp shooting also some right low lumbar pain. Patient really does not appear to be in acute distress she is also complaining of sharp shooting pains in her left arm feeling like lightning bolts. Patient with normal physical examination as far as her extremities go along his heart abdomen very slight right lower quadrant tenderness and slight tenderness in the right low back near the lumbar region. We'll go ahead and obtain appropriate laboratory studies will give patient Zofran and IV fluids. 12/12/18 13:49 Patient with a mild UTI, labs are otherwise normal. Will go ahead and place patient on antibiotics. I have tried to contact the patient's pain controller repairer and tester she has not called me back Will go ahead and give patient morphine 4 mg IV plan to discharge patient. With antibiotics patient to follow-up with her family doctor. To follow-up with her pain controller repairer and tester for further analgesia. 12/12/18 13:52 Will also give patient Zofran for nausea, - Departure Time of Disposition: 13:52 Departure Disposition: Home Clinical Impression: Right lower quadrant abdominal pain UTI (urinary tract infection) Qualifiers: Urinary tract infection type: site unspecified Hematuria presence: without hematuria Qualified Code(s): N39.0 - Urinary tract infection, site not specified Condition: Fair Critical Care Time: No Referrals: DOCTOR,NO FAMILY [Primary Care Provider] - Additional Instructions: Return home. Plenty of fluids clear fluids only 24-48 hours if abdominal pain. Bactrim DS as prescribed. Zofran as prescribed. Follow-up with your family doctor or pain controller repairer and tester for further analgesia and maintenance of your analgesia. Return for acute distress or for severe symptoms. Follow-up with your family doctor. Prescriptions: Ondansetron ODT 4 MG [Zofran Odt 4 mg] 4 mg PO Q6H PRN PRN #10 tab.rapdis PRN Reason: nausea and vomiting Smz/Tmp Ds Tablet [Bactrim Ds Tablet] 1 tab PO BID #20 tablet
[2018-12-12] MEDS ORDERED: Zofran 4 MG/2 ML VIAL ONE (12:29)
[2018-12-12] MEDS ORDERED: Sodium Chloride 0.9% 1000 ML 1,000 ML ONE (12:29)
[2018-12-12 13:02] LABS: BASOPHIL % 0.8 % (0.0-0.4); Basophil (Absolute #) 0.05 (0-0.4); Eosinophil % 3.7 % (0.00-5.0); Eosinophil (Absolute #) 0.23 (0-0.5); Granulocyte Absolute (ANC) 3.25 (1.4-6.9); Hematocrit 38.1 % (35-47); Hemoglobin 11.7 gm/dl (12.0-16.0); Lymphocyte (Absolute #) 2.08 (1.0-4.6); Lymphocytes % 33.9 % (24.0-44.0); Mean Cell Volume 85.8 fl (78-100); Mean Corpuscular Hgb Concent. 30.7 g/dl (32-36); Mean Platelet Volume 10.2 fl (6-9.5); Monocyte (Absolute #) 0.53 (0.0-1.3); Monocytes % 8.6 % (0.0-12.0); Platelet Count 230 K/mm3 (150-450); Red Blood Count 4.44 M/mm3 (4.1-5.4); Red Cell Distribution Width 16.2 % (11.5-14.0); White Blood Count 6.1 K/mm3 (4.0-10.5)
[2018-12-12 13:03] LABS: Mean Corpuscular Hemoglobin 26.3 pg (26-32)
[2018-12-12 13:17] LABS: AMYLASE < 30 U/L (30-110); LIPASE 62 U/L (23-300)
[2018-12-12 13:19] LABS: ALBUMIN 3.7 g/dL (3.5-5.0); ALKALINE PHOSPHATASE 92 U/L (38-126); ANION GAP 11.5 MEQ/L (5-15); BLOOD UREA NITROGEN 9 mg/dL (7-17); CHLORIDE 104 mmol/L (98-107); Calcium 8.9 mg/dL (8.4-10.2); Carbon Dioxide 28 mmol/L (22-30); Creatinine 1 0.76 mg/dL (0.52-1.04); Glucose 114 mg/dL (74-106); Potassium 4.5 mmol/L (3.5-5.1); SGOT/AST 32 U/L (14-36); SGPT/ALT 39 U/L (0-35); SODIUM 139 mmol/L (137-145); Total Protein 7.1 g/dL (6.3-8.2)
[2018-12-12 13:20] LABS: Appearance CLOUDY (CLEAR); Bilirubin NEGATIVE (NEGATIVE); Blood NEGATIVE Ery/ul (0-5); Epithelial Cells MANY /HPF (FEW); Glucose NEGATIVE (NEGATIVE); Ketones NEGATIVE (NEGATIVE); Leukocyte Esterase SMALL (NEGATIVE); Mucus SLIGHT /HPF (NEGATIVE); Nitrite NEGATIVE (NEGATIVE); Protein,Urine Dip NEGATIVE (Negative); Specific Gravity 1.021 (1.005-1.025); Urobilinogen NEGATIVE mg/dL (0-1)
[2018-12-12] MEDS ORDERED: MORPHINE SULFATE 4 MG INJ IV ONE (13:48)
[2018-12-12] MEDS ORDERED: BACTRIM DS TABLET PO ONE ×2 (13:55→14:09)
[2018-12-12] MEDS ORDERED: MORPHINE SULFATE 4 MG INJ ONE (14:09)
[2018-12-12 14:28] VITALS: BP 106/54; PULSE 65; O2SAT 100
== END 2018-12-12 14:36 | disposition home or self-care (01) ==
LOC: ED 11:47
DX: R10.31 Right lower quadrant pain (principal); G89.29 Other chronic pain; K21.9 Gastro-esophageal reflux disease without esophagitis; Z79.899 Other long term (current) drug therapy
CPT/HCPCS: 36000; 36415; 80053; 81001; 81025; 82150; 83690; 85025; 87086; 96360; 96374; 96375; 99284; J2270; J2405; A9270-GY

== ENCOUNTER 2018-12-25 17:44 | Emergency (ER) | payer OTHER | END 2018-12-25 22:10 | disposition home or self-care (01) | LOC: ED 17:44 ==